=== PATIENT | male | born 1965 | race Two or more races ===

== ENCOUNTER 2024-07-11 16:52 | Inpatient (IN) | payer MEDICAID, OTHER ==
[~2024-07-11] VITALS: Ht 162.6 cm; Wt 70.2 kg
[~2024-07-11 16:52] MED LIST: HYDR12.59 PO; PANT40T PO
--- NOTE | 2024-07-11 17:10 | ED.PDOC ---
History of Present Illness HPI Comments PMHx: DM, HTN PSHx: Denies. Social hx: No alcohol, tobacco, or illicit drug use. Meds: Insulin, Lisinopril Allergies: NKDA Vitals T: 99.5F RR: 20 HR: 113 BP: 131/86 O2: 99% on RA HPI: Poor Historian. MALE DISCHARGED FROM THE HOSPITAL EIGHT DAYS AGO PRESENTS TO THE EMERGENCY DEPARTMENT FOR persistent symptoms of generalized weakness. He went to have a follow up today with a his doctor and he was found with a fever of 102. Patient denies any pain in his body. Denies any acute symptoms. Patient denies bleeding from anywhere. Pt was d/c from [facility] on 07/03/2024 with dx hydronephrosis and sepsis UTI with pyelonephritis. REVIEW OF SYSTEMS: CONSTITUTIONAL: Denies acute: diaphoresis, chills, HEAD: Denies acute: headache, photophobia Eyes: Denies acute: Double vision, vision loss, eye pain, eye discharge. EARS: Denies acute: tinnitus, hearing loss, ear discharge, ear pain, THROAT: Denies acute: sore throat, swelling, difficulty swallowing , pain with swallowing, change in voice. NECK: Denies acute: neck pain, neck swelling, stiff neck. HEART: Denies acute : chest pain, palpitations, LUNGS: Denies acute: SOB, wheezing, cough, hemoptysis ABDOMEN: Denies acute: abdominal pain, Nausea, Vomiting, diarrhea, melena , hematemesis, hematochezia SKIN: Denies acute: rash, redness, lesions, itchiness. EXTREMITIES: Denies acute: calf pain, numbness, tingling, weakness, denies pain in extremity. Denies acute: Low back pain. Neuro: Denies acute: focal neurological deficit, motor or sensory focal neurological deficit, tremors, seizure like activity, confusion, dizziness, change in mental status, loss of bowel or bladder function, cauda equina like symptoms. : Denies acute: dysuria, hematuria, flank pain, increase in urinary frequency. PSYCH: Denies acute: hallucination, suicidal ideation, homicidal ideation. PHYSICAL EXAM: General: no acute distress, awake and alert. Head: normocephalic, atraumatic. Neck: supple, trachea is midline, no swelling. Throat: Normal phonation. Eyes:, no erythema, no purulent discharge, no proptosis, no icterus. Heart: regular rate, regular rhythm, no significant murmur appreciated. Lungs: no apparent respiratory distress, Able to speak in full sentences. No wheezing, no rhonchi, no crackles. No stridors Clear to auscultation bilaterally. Abdomen: non tender to palpation, non distended, soft, no guarding, no rebound, + bowel sounds. Neuro: Awake, Alert, oriented to name, self, situation, follows commands GCS=15. Speech is normal. Skin: no petechia, no purpura, no cyanosis, non-pale, not jaundice. Lower extremities: --no - Pitting edema no deformity, no focal swelling, no calf TTP. Makes eye contact. moves all four extremities. Face: no apparent facial droop. Ambulating in the ED independently. Time Seen by MD: 17:04 Primary Care Provider: MINO Reviewed Notes: Nurses Notes, Medications, Allergies Allergies: Coded Allergies: NO KNOWN ALLERGIES (Unverified , 07/11/24) Information Source: Patient Mode of Arrival: Ambulatory Severity: Mild Timing: Days Duration: Since onset Past Medical History PAST MEDICAL HISTORY: DM, HTN Surgical History: Denies all surgeries Family History Family History: Reviewed,noncontributory to illness, Unknown Social History Smoker: Non-Smoker, Quit Greater Than 1 Year Alcohol: Denies ETOH Use Drugs: Denies Drug Use Lives In: Home Was a procedure done? Was a procedure done?: No Differential Dx Considerations may include: Includes but not limited to thyroid disease, encephalopathy, electrolyte abnormality, sepsis, infection, intracranial pathology, drug adverse effects, arrhythmia, kidney insufficiency, ACS, CVA, malignancy, anemia X-Ray, Labs, Meds, VS Vital Signs Date Time Temp Pulse Resp B/P (MAP) Pulse Ox O2 Delivery O2 Flow Rate FiO2 07/11/24 20:48 99.7 07/11/24 20:30 106 13 96 Room Air* 0 21 07/11/24 20:30 99.7 106 13 104/73 (83) 96 99.7 07/11/24 17:15 99.5 113 20 131/86 (101) 99 Lab Test 07/11/24 19:55 07/11/24 19:43 07/11/24 17:55 07/11/24 17:50 Range/Units Troponin I High Sensitivity 5 6 </=54 ng/L Urine Color Colorless Yellow Urine Clarity Ex.turbid Clear Urine pH 6.5 5.0-9.0 Urine Specific [place] 1.010 1.001-1.035 Urine Protein 1+ H Negative Urine Ketones Trace Negative Urine Blood 2+ H Negative /uL Urine Nitrite Negative Negative Urine Bilirubin Negative Negative Urine Urobilinogen Normal Negative mg/dL Urine Leukocyte Esterase 3+ Negative /uL Urine RBC 22 0 - 3 /hpf Urine WBC 3999 0 - 3 /hpf Urine WBC Clumps Present None Seen /hpf Urine Squamous Epithelial Cells None seen <5 /hpf Urine Bacteria None seen None Seen /hpf Urine Osmolality Pending Urine Creatinine Pending Urine Protein/Creatinine Ratio Pending Urine Sodium 59 40-220 mmol/L Urine Glucose 2+ H Normal mg/dL Urine Total Protein 93.3 H 1-14 mg/dL Urine Opiates Screen Neg NEGATIVE Urine Fentanyl Screen Neg NEGATIVE Urine Barbiturates Screen Neg NEGATIVE Urine Phencyclidine Screen Neg NEGATIVE Urine Amphetamines Screen Neg NEGATIVE Urine Benzodiazepines Screen Neg NEGATIVE Urine Cocaine Screen Neg NEGATIVE Urine Cannabinoids Screen Neg NEGATIVE White Blood Count 14.5 H 4.4-10.8 10^3/uL Red Blood Count 4.01 L 4.5-5.90 10^6/uL Hemoglobin 12.3 L 13.5-17.5 g/dL Hematocrit 36.4 L 41.0-53.0 % Mean Corpuscular Volume 91.0 80.0-100.0 fL Mean Corpuscular Hemoglobin 30.7 28.0-32.0 pg Mean Corpuscular Hemoglobin Concent 33.7 32.0-36.0 g/dL Red Cell Distribution Width 12.9 11.8-14.3 % Platelet Count 477 H 140-450 10^3/uL Mean Platelet Volume 7.6 6.9-10.8 fL Neutrophils (%) (Auto) 79.5 37.0-80.0 % Lymphocytes (%) (Auto) 13.3 10.0-50.0 % Monocytes (%) (Auto) 6.1 0.0-12.0 % Eosinophils (%) (Auto) 0.4 0.0-7.0 % Basophils (%) (Auto) 0.7 0.0-2.0 % Neutrophils # (Auto) 11.5 H 1.6-8.6 10 ^3/uL Lymphocytes # (Auto) 1.9 0.4-5.4 10 ^3/uL Monocytes # (Auto) 0.9 0-1.3 10 ^3/uL Eosinophils # (Auto) 0.1 0-0.8 10 ^3/uL Basophils # (Auto) 0.1 0-0.2 10 ^3/uL Nucleated Red Blood Cells 0.0 % Sodium Level 137 136-145 mmol/L Potassium Level 4.6 3.5-5.1 mmol/L Chloride Level 102 98-107 mmol/L Carbon Dioxide Level 23 20-31 mmol/L Anion Gap 12 5-15 Blood Urea Nitrogen 38 H 9-23 mg/dL Creatinine 2.81 H 0.700-1.30 mg/dL Glomerular Filtration Rate Calc 25 >90 mL/min BUN/Creatinine Ratio 13.5 10.0-20.0 Serum Glucose 277 H 74-106 mg/dL Lactic Acid Level 1.5 0.4-2.0 mmol/L Calcium Level 9.4 8.7-10.4 mg/dL Magnesium Level 1.6 1.6-2.6 mg/dL Total Bilirubin 0.6 0.2-1.0 mg/dL Aspartate Amino Transferase (AST) < 8 L 13-40 U/L Alanine Aminotransferase (ALT) 17 7-40 U/L Alkaline Phosphatase 138 H 46-116 U/L Total Protein 6.5 5.7-8.2 g/dL Albumin 3.9 3.2-4.8 g/dL Influenza Type A Antigen Negative Negative Influenza Type B Antigen Negative Negative SARS-CoV-2 Antigen (Rapid) Negative NEGATIVE Current Medications Medications (Trade) Dose Ordered Sig/Tom Route Start Time Stop Time Status Last Admin Sodium Chloride 1,000 ml @ 1,000 mls/hr Q1H ONCE IV 07/11/24 17:30 07/11/24 18:29 DC 07/11/24 18:16 Ceftriaxone Sodium 50 ml @ 100 mls/hr ONCE ONCE IV 07/11/24 19:30 07/11/24 19:59 DC 07/11/24 19:39 Acetaminophen (Tylenol Tablet) 650 mg ONCE ONCE PO 07/11/24 20:45 07/11/24 20:46 DC 07/11/24 20:48 [facility] [id number] [place] [id number] Ph: [phone] DIAGNOSTIC IMAGING Diagnostic Imaging Report : [id number] Signed PATIENT: SHANTHI ONTIVEROS ACCT: [id number] UNIT: [id number] : 1965 LOC: ER ROOM / BED: / AGE / SEX: 59 / M ADM STATUS: REG ER SERVICE 25 ORDERING PHYSICIAN: KATT DA SILVA DO PROCEDURE(s): CXRP - CHEST PORTABLE REASON: fever/weak ORDER NUMBER(s): [id number], ACCESSION NUMBER(s): [id number] AP portable chest REASON FOR EXAM: fever/weak INDICATION: fever/weak FINDINGS: Heart size is . Aorta is tortuous. There are no infiltrates or effusions. Degenerative changes in the thoracic spine. IMPRESSION: 1. No acute cardiopulmonary pathology. ATED BY: JUDY PIÑA MD DICTATED DATE/TIME: 07/11/241748 SIGNED BY: JUDY PIÑA MD SIGNED DATE/TIME: 07/11/241748 CC: Time of 1ST Reevaluation: 17:34 Reevaluation 1ST: Unchanged Time of 2ND Reevaluation: 22:39 Reevaluation 2ND: Improved Patient Education/Counseling: Diagnosis, Treatment Family Education/Counseling: No Family Present Comments Patient presented with the above HPI.--generalized weakness/fever----workup was initiated. patient was found with the above mentioned diagnosis. Patient was given: Fluids and Tylenol and empiric antibiotics Patient ED course and VS have been stabilized. Patient has been reassessed in the ED and remained in a stable condition. Pertinent incidental findings were discussed with the patient and/or family. Patient/family voices understanding and is agreeable with plan. Patient has been observed in the ED adequate length of time to insure improvement/stability. patient was admitted to the medicine team for further evaluation and treatment of their presentation. All the reports of any imaging studies that were ordered by myself were reviewed by myself. Departure 1 Departure Time of Disposition: 19:24 Impression: Primary Impression: Fever Additional Impressions: Generalized weakness Urinary tract infection Disposition: ADMITTED INPATIENT Admit to: [facility] Condition: Guarded Discharged With: Self Critical Care Note Critical Care Time?: No Heart Score Heart Score: Heart Score Response (Comments) Value History N/A 0 EKG N/A 0 Age N/A 0 Risk Factors N/A 0 Troponin N/A 0 Total 0 I personally scribed for AVINASHKATT Nascimento DO ([email or web address]) on 07/11/24 at 17:10. Electronically submitted by Ginger Trimble ([employer]). I personally scribed for AVINASHKATT Azam SAWANT (DVFARMI) on 07/11/24 at 17:20. Electronically submitted by Ginger Tirmble ([employer]). I personally scribed for AVINASHKATT Azam SAWANT ([email or web address]) on 07/11/24 at 18:05. Electronically submitted by Ginger Trimble ([employer]). I personally scribed for AVINASHQUIQUEE Azam SAWANT (DVFARMI) on 07/11/24 at 19:00. Electronically submitted by Ginger Trimble ([employer]). I personally scribed for AVINASHKATT DO (DVFARMI) on 07/11/24 at 19:04. Electronically submitted by Ginger Trimble ([employer]). I personally scribed for AVINASHQUIQUEE Azam SAWANT ([email or web address]) on 07/11/24 at 19:06. Electronically submitted by Ginger Trimble ([employer]). KATT DA SILVA DO Jul 11, 2024 17:10
--- NOTE | 2024-07-11 17:51 | DVH ---
AP portable chest REASON FOR EXAM: fever/weak INDICATION: fever/weak FINDINGS: Heart size is . Aorta is tortuous. There are no infiltrates or effusions. Degenerative ch anges in the thoracic spine. IMPRESSION: 1. No acute cardiopulmonary pathology.
[2024-07-11] MEDS: SODIUM CHLORIDE 0.9% 1,000 ML IV ONE (18:16)
[2024-07-11 18:27] LABS: Basophils # (auto) 0.1 10 ^3/uL (0-0.2); Basophils % (auto) 0.7 % (0.0-2.0); Eosinophils # (auto) 0.1 10 ^3/uL (0-0.8); Eosinophils % (auto) 0.4 % (0.0-7.0); Hematocrit 36.4 % (41.0-53.0); Hemoglobin 12.3 g/dL (13.5-17.5); Lymphocytes # (auto) 1.9 10 ^3/uL (0.4-5.4); Lymphocytes % (auto) 13.3 % (10.0-50.0); Mean Corpuscular Hemoglobin 30.7 pg (28.0-32.0); Mean Corpuscular Hgb Conc. 33.7 g/dL (32.0-36.0); Monocytes # (auto) 0.9 10 ^3/uL (0-1.3); Monocytes % (auto) 6.1 % (0.0-12.0); Neutrophils # (auto) 11.5 10 ^3/uL (1.6-8.6); Neutrophils % (auto) 79.5 % (37.0-80.0); Platelet Count (auto) 477 10^3/uL (140-450); Red Blood Cells 4.01 10^6/uL (4.5-5.90); Red Cell Distribution Width 12.9 % (11.8-14.3); White Blood Cell 14.5 10^3/uL (4.4-10.8)
[2024-07-11 18:36] LABS: COVID19 ANTIGEN SOFIA FIA NEGATIVE (NEGATIVE)
[2024-07-11 18:37] LABS: Rapid Influenza A Negative (Negative); Rapid Influenza B Negative (Negative)
[2024-07-11 18:50] LABS: Alanine Aminotransferase 17 U/L (7-40); Albumin 3.9 g/dL (3.2-4.8); Alkaline Phosphatase 138 U/L (46-116); Anion Gap 12 (5-15); Aspartate Aminotransferase < 8 U/L (13-40); BUN/Creatinine Ratio 13.5 (10.0-20.0); Blood Urea Nitrogen 38 mg/dL (9-23); Calcium 9.4 mg/dL (8.7-10.4); Carbon Dioxide 23 mmol/L (20-31); Chloride 102 mmol/L (98-107); Glucose 277 mg/dL (74-106); Magnesium 1.6 mg/dL (1.6-2.6); Potassium 4.6 mmol/L (3.5-5.1); Sodium 137 mmol/L (136-145)
[2024-07-11 18:51] LABS: Bilirubin, Total 0.6 mg/dL (0.2-1.0); Total Protein 6.5 g/dL (5.7-8.2)
[2024-07-11] MEDS: cefTRIAXone 1GM/50ML D5W 50 ML IV ONE (19:39)
[2024-07-11 20:28] LABS: Urine Bacteria None Seen /hpf (None Seen)
[2024-07-11 20:30] VITALS: PULSE 106; RESP 13; O2SAT 96
[2024-07-11 20:40] LABS: Urine Blood 2+ /uL (Negative); Urine Clarity Ex.Turbid (Clear); Urine Color Colorless (Yellow); Urine Protein, UAD 1+ (Negative); Urine Urobilinogen Normal (Negative); Urine WBC 3999 /hpf (0 - 3); Urine WBC Clumps PRESENT /hpf (None Seen); Urine pH 6.5 (5.0-9.0)
[2024-07-11 20:45] LABS: Amphetamine Screen, Urine Neg (NEGATIVE); Barbiturate Scree,Urine Neg (NEGATIVE); Benzodiazephine Screen, Urine Neg (NEGATIVE)
[2024-07-11 20:46] LABS: Cannabinoid Screen, Urine Neg (NEGATIVE); Cocaine Screen, Urine Neg (NEGATIVE); Opiate Scree,Urine Neg (NEGATIVE); Phencyclidine Screen, Urine Neg (NEGATIVE)
[2024-07-11] MEDS: ACETAMINOPHEN 325 MG TAB PO ONE (20:48)
[2024-07-11] MEDS ORDERED: DOCUSATE SOD 100 MG CAP PO PRN (21:00)
[2024-07-11] MEDS ORDERED: ACETAMINOPHEN 325 MG TAB PO PRN (21:00)
[2024-07-11] MEDS ORDERED: NITROGLYCERIN 0.4 MG SL TAB SL PRN (21:00)
[2024-07-11] MEDS ORDERED: MORPHINE SULFATE INJ 2 MG/ml SYRG IV PRN ×2 (21:00)
--- NOTE | 2024-07-11 21:49 | DVHHPRES ---
History of Present Illness Resident Creating Document: CHAPIS BIGGS RESIDENT History of Present Illness Patient is 59 years old male with past medical history of hypertension, diabetes mellitus type 2, hyperlipidemia, suspected CKD with recent hospitalization due to UTI with sepsis came with a complaint of generalized weakness and fever. As per patient patient has been feeling tired for last 1 week after getting discharged from [facility]. Patient reported that he has no energy and he also had fever at home running around 103 F. patient also complained about increased frequency of micturition for last 1 week. patient came to the outpatient clinic for follow and found to have fever 102 F. and patient was referred to ER for further evaluation and care. Denied any joint pain or swelling, dysuria, chest pain or shortness of breath, palpitation, dysarthria, change in vision. Initial lab workup revealed leukocytosis with WBC 14.7, suspected CKD with serum creatinine 2.81, BUN 38, elevated serum glucose 277, low magnesium 1.6, elevated alkaline phosphatase 138. Urinalysis revealed leukocyte esterase 3+, RBC 22, WBC 3999. Patient's Was recently hospitalized for acute UTI with sepsis, patient found to have Klebsiella pneumonia. patient was treated with piperacillin/tazobactam. CXR revealed no acute cardiopulmonary disease. UDS negative. CT abdomen and pelvis revealed-Mild bilateral hydronephrosis right greater than left. Bilateral ureterectasis to the ureterovesical junction bilaterally with no calculi noted. Diffuse bladder wall thickening ( 8-9 mm) may be secondary to infection or neoplasm. Prostate measures 4.2 x 4 cm Past Medical History Hypertension, diabetes mellitus type 2, hyperlipidemia, suspected CKD Past Surgical History None Past Social History Patient lives with his mom at home, denies smoking/alcoholism/drug abuse Review of Systems Review of Systems Allergy- NKDA Patient was seen today at the bedside. Patient reports feeling tired Cardiovascular- deny acute chest pain or shortness of breath or cough or palpitation Respiratory- denies cough or short of breath or wheezing Gastrointestinal- denies any rectal bleeding, nausea or vomiting Musculoskeletal-denies acute joint swelling or tenderness or redness Neurological- denies acute dysarthria, dysphagia, change in vision Psychiatry- denies depression or SI or HI Skin- denies acute rash or purpura Allergies: Coded Allergies: NO KNOWN ALLERGIES (Unverified , 07/11/24) Medications Current Medications Medications Dose Ordered Sig/Tom Route Start Time Stop Time Status Last Admin Dose Admin Sodium Chloride 10 ml Q8HR IV 07/11/24 22:00 Ondansetron HCl 4 mg Q4HP PRN IV 07/11/24 21:00 Docusate Sodium 100 mg BIDPRN PRN PO 07/11/24 21:00 Acetaminophen 650 mg Q6HP PRN PO 07/11/24 21:00 Morphine Sulfate 2 mg Q4HPRN PRN IV 07/11/24 21:00 Nitroglycerin 0.4 mg Q5MINP PRN SL 07/11/24 21:00 Morphine Sulfate 2 mg Q30M PRN IV 07/11/24 21:00 Meropenem 50 ml @ 17 mls/hr Q12HR IV 07/11/24 22:00 UNV Sodium Chloride 1,000 ml @ 75 mls/hr [id number] IV 07/11/24 21:45 UNV Exam Vital Signs Vital Signs Date Time Temp Pulse Resp B/P (MAP) Pulse Ox O2 Delivery O2 Flow Rate FiO2 07/11/24 20:48 99.7 07/11/24 20:30 106 13 96 Room Air* 0 21 07/11/24 20:30 104/73 (83) Exam General examination- awake, alert, oriented, conversant HEENT- PEERLA, no acute nasal discharge Cardiovascular- S1-S2 audible, rate and rhythm regular, no murmur Respiratory- CTAB, no wheeze or rhonchi Gastrointestinal-nontender, bowel sound+. Nondistended -renal system-right renal angle tenderness Musculoskeletal-no acute joint swelling or tenderness or redness# Lower extremity-leg edema Neurological- cranial nerves intact, no acute dysarthria or dysphagia Psychiatry- denies depression or SI or HI Skin- no acute rash or purpura Labs/Xrays Labs Test 07/11/24 19:55 07/11/24 19:43 07/11/24 17:55 07/11/24 17:50 Range/Units Troponin I High Sensitivity 5 </=54 ng/L Urine Color Colorless Yellow Urine Clarity Ex.turbid Clear Urine pH 6.5 5.0-9.0 Urine Specific [place] 1.010 1.001-1.035 Urine Protein 1+ H Negative Urine Ketones Trace Negative Urine Blood 2+ H Negative /uL Urine Nitrite Negative Negative Urine Bilirubin Negative Negative Urine Urobilinogen Normal Negative mg/dL Urine Leukocyte Esterase 3+ Negative /uL Urine RBC 22 0 - 3 /hpf Urine WBC 3999 0 - 3 /hpf Urine WBC Clumps Present None Seen /hpf Urine Squamous Epithelial Cells None seen <5 /hpf Urine Bacteria None seen None Seen /hpf Urine Glucose 2+ H Normal mg/dL Urine Opiates Screen Neg NEGATIVE Urine Fentanyl Screen Neg NEGATIVE Urine Barbiturates Screen Neg NEGATIVE Urine Phencyclidine Screen Neg NEGATIVE Urine Amphetamines Screen Neg NEGATIVE Urine Benzodiazepines Screen Neg NEGATIVE Urine Cocaine Screen Neg NEGATIVE Urine Cannabinoids Screen Neg NEGATIVE White Blood Count 14.5 H 4.4-10.8 10^3/uL Red Blood Count 4.01 L 4.5-5.90 10^6/uL Hemoglobin 12.3 L 13.5-17.5 g/dL Hematocrit 36.4 L 41.0-53.0 % Mean Corpuscular Volume 91.0 80.0-100.0 fL Mean Corpuscular Hemoglobin 30.7 28.0-32.0 pg Mean Corpuscular Hemoglobin Concent 33.7 32.0-36.0 g/dL Red Cell Distribution Width 12.9 11.8-14.3 % Platelet Count 477 H 140-450 10^3/uL Mean Platelet Volume 7.6 6.9-10.8 fL Neutrophils (%) (Auto) 79.5 37.0-80.0 % Lymphocytes (%) (Auto) 13.3 10.0-50.0 % Monocytes (%) (Auto) 6.1 0.0-12.0 % Eosinophils (%) (Auto) 0.4 0.0-7.0 % Basophils (%) (Auto) 0.7 0.0-2.0 % Neutrophils # (Auto) 11.5 H 1.6-8.6 10 ^3/uL Lymphocytes # (Auto) 1.9 0.4-5.4 10 ^3/uL Monocytes # (Auto) 0.9 0-1.3 10 ^3/uL Eosinophils # (Auto) 0.1 0-0.8 10 ^3/uL Basophils # (Auto) 0.1 0-0.2 10 ^3/uL Nucleated Red Blood Cells 0.0 % Sodium Level 137 136-145 mmol/L Potassium Level 4.6 3.5-5.1 mmol/L Chloride Level 102 98-107 mmol/L Carbon Dioxide Level 23 20-31 mmol/L Anion Gap 12 5-15 Blood Urea Nitrogen 38 H 9-23 mg/dL Creatinine 2.81 H 0.700-1.30 mg/dL Glomerular Filtration Rate Calc 25 >90 mL/min BUN/Creatinine Ratio 13.5 10.0-20.0 Serum Glucose 277 H 74-106 mg/dL Lactic Acid Level 1.5 0.4-2.0 mmol/L Calcium Level 9.4 8.7-10.4 mg/dL Magnesium Level 1.6 1.6-2.6 mg/dL Total Bilirubin 0.6 0.2-1.0 mg/dL Aspartate Amino Transferase (AST) < 8 L 13-40 U/L Alanine Aminotransferase (ALT) 17 7-40 U/L Alkaline Phosphatase 138 H 46-116 U/L Total Protein 6.5 5.7-8.2 g/dL Albumin 3.9 3.2-4.8 g/dL Influenza Type A Antigen Negative Negative Influenza Type B Antigen Negative Negative SARS-CoV-2 Antigen (Rapid) Negative NEGATIVE Assessment/Plan Assessment/Plan #Suspected recurrent pyelonephritis -patient's fever and generalized weakness -increased frequency of micturition -urinalysis revealed leukocyte esterase 3+, RBC 22, WBC 3999 -was seen and treated for UTI with sepsis -continue meropenem 1 g IV b.i.d. -pending uterine and blood CS - CT scan of the abdomen and pelvis without contrast-Mild bilateral hydronephrosis right greater than left. Bilateral ureterectasis to the ureterovesical junction bilaterally with no calculi noted. Diffuse bladder wall thickening ( 8-9 mm) may be secondary to infection or neoplasm. Prostate measures 4.2 x 4 cm -ultrasound of the abdomen revealed- Bilateral vikn-rs-zbiipglc hydronephrosis and hydroureter with diffuse urinary bladder wall thickening which may represent diffuse cystitis versus neoplasm -Ultrasound of the abdomen revealed- Bilateral gaii-xr-ydmuuiax hydronephrosis and hydroureter with diffuse urinary bladder wall thickening which may represent diffuse cystitis versus neoplasm #Sepsis likely due to pyelonephritis --patient's fever and generalized weakness -increased frequency of micturition -urinalysis revealed leukocyte esterase 3+, RBC 22, WBC 3999 -was seen and treated for UTI with sepsis -continue meropenem 1 g IV b.i.d. -pending urine and blood CS -CT scan of the abdomen and pelvis without contrast-Mild bilateral hydronephro sis right greater than left. Bilateral ureterectasis to the ureterovesical junction bilaterally with no calculi noted. Diffuse bladder wall thickening ( 8- 9 mm) may be secondary to infection or neoplasm. Prostate measures 4.2 x 4 cm -Ultrasound of the abdomen revealed- Bilateral yryb-zt-vzbkghtc hydronephrosis and hydroureter with diffuse urinary bladder wall thickening which may represent diffuse cystitis versus neoplasm #Mild bilateral hydronephrosis right greater than left. Bilateral ureterectasis to the ureterovesical junction bilaterally with no calculi noted. -ordered Urology consult for further evaluation and care #Diffuse bladder wall thickening ( 8-9 mm) may be secondary to infection or neoplasm --ordered Urology consult for further evaluation and care # rule out prostatitis -CT scan of the abdomen and pelvis without contrast-Mild bilateral hydronephrosis right greater than left. Bilateral ureterectasis to the ureterovesical junction bilaterally with no calculi noted. Diffuse bladder wall thickening ( 8-9 mm) may be secondary to infection or neoplasm. Prostate measures 4.2 x 4 cm -Ultrasound of the abdomen revealed- Bilateral jfrk-qw-viebeajv hydronephrosis and hydroureter with diffuse urinary bladder wall thickening which may represent diffuse cystitis versus neoplasm -pending Urology consult #Mild bilateral hydronephrosis right greater than left. Bilateral ureterectasis to the ureterovesical junction bilaterally with no calculi noted. # generalized weakness and fever likely due to recurrent pyelonephritis -continue current treatment #Hypertension -hydralazine 10 mg IV p.r.n. -MONITOR BLOOD PRESSURE # Diabetes mellitus type 2 -on 06/30/24 HGB A1c 10.7 -continue insulin sliding scale as prescribed -insulin Lantus 15 units q.h.s. #Suspected CKD stage 3 -avoid dehydration and nephrotoxic drugs #Hypomagnesemia -magnesium 1.6 -supplemented #Leukocytosis likely due to pyelonephritis -continue current management as prescribed # Goals of care/advance care planning; FULL CODE; discussed with the patient >15 minutes PUD prophylaxis: not required DVT prophylaxis: Patient ambulating PCP-Dr. Serrano Plan discussed with Dr. Gutierrez, nursing staff, patient Total time spent on patient evaluation, chart review, assessment and plan, discussion discussion >30 minutes Plan discussed with: Patient Plan discussed with: Patient (RN), Other My Orders Orders - CHAPIS BIGGS Procedure Category Date Status Time Admit ADMIT 07/11/24 Transmitted 20:48 Code Status CODE 07/11/24 Transmitted 20:48 Sodium Chloride Lock PHA 07/11/24 In Process (Saline Lock Ns) 22:00 Ondansetron Hcl PHA 07/11/24 In Process (Zofran) 21:00 Docusate Sodium PHA 07/11/24 In Process Capsule (Colace 21:00 Complete Blood Count LAB 07/12/24 Verified 04:00 Comprehensive LAB 07/12/24 Verified Metabolic Panel 04:00 Acetaminophen Tablet PHA 07/11/24 In Process (Tylenol Tablet) 21:00 Morphine Sulfate PHA 07/11/24 In Process Injection 21:00 Nitroglycerin PHA 07/11/24 In Process Sublingual (Ntrostat 21:00 Morphine Sulfate PHA 07/11/24 In Process Injection 21:00 Oxygen By Nasal RT 07/11/24 Transmitted Cannula 20:48 Stat Ekg For Chest NOEMÍ 07/11/24 In Process Pain 20:48 Notify Of Changes NOEMÍ 07/11/24 In Process From Base 20:48 Athletics Director For NOEMÍ 07/11/24 In Process 24 Hours 20:48 Emergency Dysrhythmia NOEMÍ 07/11/24 In Process Protocol 20:48 Rhythm Strips Once NOEMÍ 07/11/24 In Process Every Shift 20:48 Urine Bacterial JATIN 07/11/24 In Process Culture 21:08 Meropenem 1gm Ivpb PHA 07/11/24 Logged (Merrem 1gm/ Ns) 22:00 Sodium Chloride 0.9% PHA 07/11/24 Logged 21:45 Ct Ab Pelvis W Wo CT 07/11/24 Verified Con-Iv Only 21:35 Osmolality Urine LAB 07/11/24 Verified 21:35 Urine Sodium LAB 07/11/24 Verified 21:35 Urine LAB 07/11/24 Verified Protein/Creatinine Urine Creatinine LAB 07/11/24 Verified 21:35 Intake And Output NOEMÍ 07/11/24 Verified 21:35 Date of Service: Jul 11, 2024 Billing Provider: EVERETTE GUTIERREZ MD Common Visit Codes: [id number] INP/OBS CARE (HIGH) CHAPIS BIGGS RESIDENT Jul 11, 2024 21:49 EVERETTE GUTIERREZ MD Jul 12, 2024 08:53
[2024-07-11] MEDS: ACCU-CHEK COMFORT CURVE STRIP VI SCH (22:00)
[2024-07-11] MEDS ORDERED: hydrALAZINE HCL 20 MG/ML VL IV PRN (22:00)
[2024-07-11] MEDS ORDERED: DEXTROSE (50%) 50ML SYRG IV PRN (22:00)
[2024-07-11] MEDS ORDERED: MEROPENEM 1GM IVPB 50 ML IV SCH (22:00)
[2024-07-11 22:35] LABS: Protein, Urine 93.3 mg/dL (1-14)
--- NOTE | 2024-07-11 22:35 | DVH ---
Exam: CT CT AB PEL WO CON-NO ORAL OR IV History: SUSPECTED PYELONEPHRITIS Comparison Study: None available at time of dictation. TECHNIQUE: Multidetector CT of the abdomen was performed from lung bases to pubic symphysis. Imaging was performed without IV contrast. Axial, coronal and sagittal multiplanar reformats were obtained fr om the axial data set by the technologist. Radiation Dose Information: CT Dose: CTDI volume is 7.94 mGy. Dose-length product is 437.99 mGy*cm FINDINGS: Evaluation of solid organs is limited due to lack of intravenous contrast use. Findings: Lung Bases: No acute or significant lung base finding. Normal heart size. No pleural or pericardial effusion. Liver: The liver is normal in size. No focal lesions. 16 17 mm cyst in the right lobe of the liver. Gallbladder and Biliary Tree: Unremarkable Spleen: Unremarkable Pancreas: The pancreas is grossly normal in appearance. Adrenal Glands: Unremarkable Kidneys: Mild bilateral hydronephrosis with ureteral dilatation to the bladder. Bladder: Bladder wall thickening may be secondary to infection or neoplasm. Bowel: The stomach is grossly normal in appearance. Small bowel and colon are normal in caliber and d istribution. The appendix is not visualized; however, no secondary findings of acute appendicitis id entified. Ascites: Absent Lymphadenopathy: No mesenteric, retroperitoneal or periportal lymphadenopathy. Abdominal Wall and Mesentery: Unremarkable. Vasculature: The visualized abdominal aorta is normal in size and caliber. Evaluation of abdominal a nd pelvic vessels is limited due to lack of intravenous contrast. Pelvic Organs: Prostate measures 4.2 by 4 cm Musculoskeletal: No aggressive focal bony lesions, acute fractures or dislocation. Soft tissues: Unremarkable IMPRESSION: 1. Mild bilateral hydronephrosis right greater than left. 2. Bilateral ureterectasis to the ureterovesical junction bilaterally with no calculi noted. 3. Diffuse bladder wall thickening ( 8-9 mm) may be secondary to infection or neoplasm. 4. Prostate measures 4.2 x 4 cm Radiation optimization: All CT scans at this facility use at least one of these dose optimization magalys hniques: automated exposure control mA and/or kV adjustment per patient size (includes targeted exam s where dose is matched to clinical indication) or iterative reconstruction.
[2024-07-11 22:38] LABS: Creatinine, Urine 78.31 mg/dL (30.0-125.0); Urine Protein/Creatinine Ratio 1.19
[2024-07-11 22:43] LABS: Creatinine, Urine 78.07 mg/dL (30.0-125.0)
[2024-07-12] VITALS (7 sets, daily range): BP systolic 110–129; BP diastolic 72–95; PULSE 86–101; RESP 15–23; TEMP 98–100.1; O2SAT 95–99
[2024-07-12] MEDS: InsuLIN REG 1unit/0.01ml Soln (100units/ml) SC SCH (00:29)
[2024-07-12] MEDS: INSULIN LANTUS (GLARGINE) 1 /0.01ml (100units/ml) SC SCH (00:30)
[2024-07-12] MEDS: SODIUM CHLORIDE 0.9% 1,000 ML IV SCH ×2 (00:44→08:45)
[2024-07-12] MEDS: MAGNESIUM SULFATE 1GM/100ML 100 ML IV ONE (00:44)
[2024-07-12] MEDS: SODIUM CHLOR 0.9% PF (SALINE LOCK) 10ML VIAL/SYR IV SCH (00:45)
[2024-07-12] MEDS: MEROPENEM 1GM IVPB 50 ML IV SCH (02:15)
--- NOTE | 2024-07-12 04:06 | DVH ---
US KIDNEY HISTORY: FEVER, WEAKNESS COMPARISON: CT 07/11/2024 TECHNIQUE: Real-time ultrasound grayscale and color Doppler images were obtained of the kidneys and b ladder. FINDINGS: The right kidney measures 9.8 cm in length. Left kidney measures 8.9 cm in length. There is bilatera l hydronephrosis. The kidneys appear lobulated in contour. Renal cortex appears preserved. No sonogr aphically evident calculus or mass. The urinary bladder demonstrates diffuse wall thickening with increased vascularity. Prevoid volume of 778 ML. Postvoid volume of 488 ML IMPRESSION: 1. Bilateral tgqj-ow-nklfjbeh hydronephrosis and hydroureter with diffuse urinary bladder wall thicke uma which may represent diffuse cystitis versus neoplasm. Correlation with urinalysis is recommended . Findings are similar to prior CT. HS:Y
[2024-07-12 04:58] LABS: Basophils # (auto) 0.2 10 ^3/uL (0-0.2); Basophils % (auto) 1.3 % (0.0-2.0); Eosinophils # (auto) 0 10 ^3/uL (0-0.8); Eosinophils % (auto) 0.3 % (0.0-7.0); Hematocrit 34.2 % (41.0-53.0); Hemoglobin 11.7 g/dL (13.5-17.5); Lymphocytes % (auto) 7.1 % (10.0-50.0); Mean Corpuscular Hemoglobin 30.9 pg (28.0-32.0); Mean Corpuscular Hgb Conc. 34.1 g/dL (32.0-36.0); Mean Corpuscular Volume 90.5 fL (80.0-100.0); Monocytes # (auto) 0.8 10 ^3/uL (0-1.3); Monocytes % (auto) 5.8 % (0.0-12.0); Neutrophils # (auto) 12.2 10 ^3/uL (1.6-8.6); Neutrophils % (auto) 85.5 % (37.0-80.0); Nucleated Red Blood Cells % 0.1 %; Platelet Count (auto) 387 10^3/uL (140-450); Red Blood Cells 3.78 10^6/uL (4.5-5.90); Red Cell Distribution Width 12.9 % (11.8-14.3); White Blood Cell 14.2 10^3/uL (4.4-10.8)
[2024-07-12 05:12] LABS: Alanine Aminotransferase 14 U/L (7-40); Albumin 3.6 g/dL (3.2-4.8); Alkaline Phosphatase 120 U/L (46-116); Anion Gap 11 (5-15); Aspartate Aminotransferase < 8 U/L (13-40); BUN/Creatinine Ratio 14.3 (10.0-20.0); Bilirubin, Total 0.4 mg/dL (0.2-1.0); Blood Urea Nitrogen 39 mg/dL (9-23); Calcium 9.3 mg/dL (8.7-10.4); Carbon Dioxide 21 mmol/L (20-31); Chloride 108 mmol/L (98-107); Phosphorus 2.4 mg/dL (2.4-5.1); Potassium 3.7 mmol/L (3.5-5.1); Sodium 140 mmol/L (136-145); Total Protein 6.4 g/dL (5.7-8.2)
[2024-07-12 05:15] LABS: Glucose 117 mg/dL (74-106)
[2024-07-12] MEDS: ONDANSETRON HCL 4 MG/2 ML VIAL IV PRN (06:36)
--- NOTE | 2024-07-12 08:18 | DVHINCON2 ---
Date of service: Jul 12, 2024 Referring Physician hospitalist Reason for Consultation hydronephrosis History of Present Illness History Source: Patient, RN Notes, MD Notes, Old Records Exam Limitations: No limitations HPI 59 yo male PMH HTN, DM, CKD, UTI, sepsis, dehydration and BPH admitted for generalized weakness. He reports he had been taking flomax prescribed by PCP but has been out for 2 months and noticed increase in LUTs. He was given flomax today and He is asymptomatic currently. CT showed bilateral hydro with thickened bladder wall . Cr is 1.6 Baseline around 2. He was admitted here last week for sepsis. Urine and blood cultures were noted to be positive for Klebsiella Pneumonia Home Meds Reported Medications Insulin Glargine (Lantus Solostar) 100 Unit/Ml Inj, 100 UNIT SC DAILY, INJ 07/12/24 Lisinopril (Lisinopril) 10 Mg Tab, 10 MG PO DAILY, TAB 07/12/24 Glipizide (Glipizide) 5 Mg Tab, 1 TAB PO DAILY, #90 TAB 3 Refills 07/12/24 Atorvastatin Calcium (ATORVASTATIN CALCIUM) 40 Mg Tab, 1 TAB PO QPM, #30 TAB 5 Refills 07/12/24 Tamsulosin Hcl (Tamsulosin Hcl) 0.4 Mg Cap, 0.4 MG PO DAILY, CAP 07/12/24 Past Medical History Renal/: UTI Endocrine: NIDDM Smoker: No Hx (Negative) Alocohol: None Drugs: None Domestic Violence: Neg Review of Systems Constitutional: Weakness Genitourinary: Frequency H&P Exam Vital Signs Vital Signs Date Time Temp Pulse Resp B/P (MAP) Pulse Ox O2 Delivery O2 Flow Rate FiO2 07/12/24 04:38 108 14 131/69 (89) 98 07/12/24 00:01 98.2 98.2 07/12/24 00:01 Room Air* 0 21 General Appeara: Well developed, Well nourished, Normal Appearance Pulmonary/Respiratory: Normal inspection, Normal breath sounds, Chest non- tender, Lungs clear Cardiovascular/Chest: Normal inspection, Regular rate, Normal Rhythm Abdominal Exam: Normal bowel sounds, Soft, No tenderness, No hepatospenomegaly, No masses Rectal Exam: Deferred Neuro/Mental St: Alert, Oriented Appearance: Appropriate appearance, Appropriate insight Eye contact/ Speech: Cooperative, Good eye contact, Normal speech Skin Exam: Normal inspection, Normal color, Warm/dry Labs/Xrays [facility] [id number] [place] [id number] Ph: [phone] DIAGNOSTIC IMAGING Diagnostic Imaging Report : [id number] Signed PATIENT: SHANTHI ONTIVEROS ACCT: [id number] UNIT: [id number] : 1965 LOC: OVERFLOW ROOM / BED: 1022-ER / A AGE / SEX: 59 / M ADM STATUS: ADM IN SERVICE 44 ORDERING PHYSICIAN: CHAPIS BIGGS RESIDENT PROCEDURE(s): ABPL - CT AB PEL WO CON-NO ORAL OR IV REASON: SUSPECTED PYELONEPHRITIS ORDER NUMBER(s): [id number], ACCESSION NUMBER(s): [id number] Exam: CT CT AB PEL WO CON-NO ORAL OR IV History: SUSPECTED PYELONEPHRITIS Comparison Study: None available at time of dictation. TECHNIQUE: Multidetector CT of the abdomen was performed from lung bases to pubic symphysis. Imaging was performed without IV contrast. Axial, coronal and sagittal multiplanar reformats were obtained from the axial data set by the technologist. Radiation Dose Information: CT Dose: CTDI volume is 7.94 mGy. Dose-length product is 437.99 mGy*cm FINDINGS: Evaluation of solid organs is limited due to lack of intravenous contrast use. Findings: Lung Bases: No acute or significant lung base finding. Normal heart size. No pleural or pericardial effusion. Liver: The liver is normal in size. No focal lesions. 16 17 mm cyst in the right lobe of the liver. Gallbladder and Biliary Tree: Unremarkable Spleen: Unremarkable Pancreas: The pancreas is grossly normal in appearance. Adrenal Glands: Unremarkable Kidneys: Mild bilateral hydronephrosis with ureteral dilatation to the bladder. Bladder: Bladder wall thickening may be secondary to infection or neoplasm. Bowel: The stomach is grossly normal in appearance. Small bowel and colon are n ormal in caliber and distribution. The appendix is not visualized; however, no secondary findings of acute appendicitis identified. Ascites: Absent Lymphadenopathy: No mesenteric, retroperitoneal or periportal lymphadenopathy. Abdominal Wall and Mesentery: Unremarkable. Vasculature: The visualized abdominal aorta is normal in size and caliber. Evaluation of abdominal and pelvic vessels is limited due to lack of intravenous contrast. Pelvic Organs: Prostate measures 4.2 by 4 cm Musculoskeletal: No aggressive focal bony lesions, acute fractures or dislocation. Soft tissues: Unremarkable IMPRESSION: 1. Mild bilateral hydronephrosis right greater than left. 2. Bilateral ureterectasis to the ureterovesical junction bilaterally with no calculi noted. 3. Diffuse bladder wall thickening ( 8-9 mm) may be secondary to infection or neoplasm. 4. Prostate measures 4.2 x 4 cm Radiation optimization: All CT scans at this facility use at least one of these dose optimization techniques: automated exposure control mA and/or kV adjustment per patient size (includes targeted exams where dose is matched to clinical indication) or iterative reconstruction. ATED BY: JUDY RIVAS Jr., DO DICTATED DATE/TIME: 07/11/242232 SIGNED BY: JUDY RIVAS Jr., DO SIGNED DATE/TIME: 07/11/242232 CC: [place] [id number] Ph: [phone] DIAGNOSTIC IMAGING Diagnostic Imaging Report : [id number] Signed PATIENT: SHANTHI ONTIVEROS ACCT: [id number] UNIT: [id number] : 1965 LOC: OVERFLOW ROOM / BED: [facility]-ER / A AGE / SEX: 59 / M ADM STATUS: ADM IN SERVICE 44 ORDERING PHYSICIAN: CHAPIS BIGGS RESIDENT PROCEDURE(s): ABPL - CT AB PEL WO CON-NO ORAL OR IV REASON: SUSPECTED PYELONEPHRITIS ORDER NUMBER(s): [id number], ACCESSION NUMBER(s): [id number] Exam: CT CT AB PEL WO CON-NO ORAL OR IV History: SUSPECTED PYELONEPHRITIS Comparison Study: None available at time of dictation. TECHNIQUE: Multidetector CT of the abdomen was performed from lung bases to pubic symphysis. Imaging was performed without IV contrast. Axial, coronal and sagittal multiplanar reformats were obtained from the axial data set by the technologist. Radiation Dose Information: CT Dose: CTDI volume is 7.94 mGy. Dose-length product is 437.99 mGy*cm FINDINGS: Evaluation of solid organs is limited due to lack of intravenous contrast use. Findings: Lung Bases: No acute or significant lung base finding. Normal heart size. No pleural or pericardial effusion. Liver: The liver is normal in size. No focal lesions. 16 17 mm cyst in the right lobe of the liver. Gallbladder and Biliary Tree: Unremarkable Spleen: Unremarkable Pancreas: The pancreas is grossly normal in appearance. Adrenal Glands: Unremarkable Kidneys: Mild bilateral hydronephrosis with ureteral dilatation to the bladder. Bladder: Bladder wall thickening may be secondary to infection or neoplasm. Bowel: The stomach is grossly normal in appearance. Small bowel and colon are normal in caliber and distribution. The appendix is not visualized; however, no secondary findings of acute appendicitis identified. Ascites: Absent Lymphadenopathy: No mesenteric, retroperitoneal or periportal lymphadenopathy. Abdominal Wall and Mesentery: Unremarkable. Vasculature: The visualized abdominal aorta is normal in size and caliber. Evaluation of abdominal and pelvic vessels is limited due to lack of intravenous contrast. Pelvic Organs: Prostate measures 4.2 by 4 cm Musculoskeletal: No aggressive focal bony lesions, acute fractures or dislocation. Soft tissues: Unremarkable IMPRESSION: 1. Mild bilateral hydronephrosis right greater than left. 2. Bilateral ureterectasis to the ureterovesical junction bilaterally with no calculi noted. 3. Diffuse bladder wall thickening ( 8-9 mm) may be secondary to infection or neoplasm. 4. Prostate measures 4.2 x 4 cm Radiation optimization: All CT scans at this facility use at least one of these dose optimization techniques: automated exposure control mA and/or kV ad justment per patient size (includes targeted exams where dose is matched to clinical indication) or iterative reconstruction. ATED BY: JUDY RIVAS Jr., DO DICTATED DATE/TIME: 07/11/242232 SIGNED BY: JUDY RIVAS Jr., SIGNED DATE/TIME: 07/11/242232 CC: [place] [id number] Ph: [phone] DIAGNOSTIC IMAGING Diagnostic Imaging Report : [id number] Signed PATIENT: SHANTHI ONTIVEROS ACCT: [id number] UNIT: [id number] : 1965 LOC: OVERFLOW ROOM / BED: 1022-ER / A AGE / SEX: 59 / M ADM STATUS: ADM IN SERVICE 0600 ORDERING PHYSICIAN: CHAPIS BIGGS RESIDENT PROCEDURE(s): KIDUS - KIDNEY REASON: FEVER, WEAKNESS ORDER NUMBER(s): [id number], ACCESSION NUMBER(s): [id number] KIDNEY HISTORY: FEVER, WEAKNESS COMPARISON: CT 07/11/2024 TECHNIQUE: Real-time ultrasound grayscale and color Doppler images were obtained of the kidneys and bladder. FINDINGS: The right kidney measures 9.8 cm in length. Left kidney measures 8.9 cm in length. There is bilateral hydronephrosis. The kidneys appear lobulated in contour. Renal cortex appears preserved. No sonographically evident calculus or mass. The urinary bladder demonstrates diffuse wall thickening with increased vascul arity. Prevoid volume of 778 ML. Postvoid volume of 488 ML IMPRESSION: 1. Bilateral xmai-ch-htbykkyi hydronephrosis and hydroureter with diffuse urinary bladder wall thickening which may represent diffuse cystitis versus neoplasm. Correlation with urinalysis is recommended. Findings are similar to prior CT. HS:Y ATED BY: DEVAUGHN TIAN MD DICTATED DATE/TIME: 07/12/24404 SIGNED BY: DEVAUGHN TIAN MD SIGNED DATE/TIME: 07/12/24404 CC: Labs Test 07/12/24 06:42 07/12/24 04:30 07/11/24 22:50 07/11/24 19:43 Range/Units POC Glucose 99 70-106 mg/dl White Blood Count 14.2 H 4.4-10.8 10^3/uL Red Blood Count 3.78 L 4.5-5.90 10^6/uL Hemoglobin 11.7 L 13.5-17.5 g/dL Hematocrit 34.2 L 41.0-53.0 % Mean Corpuscular Volume 90.5 80.0-100.0 fL Mean Corpuscular Hemoglobin 30.9 28.0-32.0 pg Mean Corpuscular Hemoglobin Concent 34.1 32.0-36.0 g/dL Red Cell Distribution Width 12.9 11.8-14.3 % Platelet Count 387 140-450 10^3/uL Mean Platelet Volume 7.5 6.9-10.8 fL Neutrophils (%) (Auto) 85.5 H 37.0-80.0 % Lymphocytes (%) (Auto) 7.1 L 10.0-50.0 % Monocytes (%) (Auto) 5.8 0.0-12.0 % Eosinophils (%) (Auto) 0.3 0.0-7.0 % Basophils (%) (Auto) 1.3 0.0-2.0 % Neutrophils # (Auto) 12.2 H 1.6-8.6 10 ^3/uL Lymphocytes # (Auto) 1.0 0.4-5.4 10 ^3/uL Monocytes # (Auto) 0.8 0-1.3 10 ^3/uL Eosinophils # (Auto) 0 0-0.8 10 ^3/uL Basophils # (Auto) 0.2 0-0.2 10 ^3/uL Nucleated Red Blood Cells 0.1 % Sodium Level 140 136-145 mmol/L Potassium Level 3.7 3.5-5.1 mmol/L Chloride Level 108 H 98-107 mmol/L Carbon Dioxide Level 21 20-31 mmol/L Anion Gap 11 5-15 Blood Urea Nitrogen 39 H 9-23 mg/dL Creatinine 2.73 H 0.700-1.30 mg/dL Glomerular Filtration Rate Calc 26 >90 mL/min BUN/Creatinine Ratio 14.3 10.0-20.0 Serum Glucose 117 #H 74-106 mg/dL Calcium Level 9.3 8.7-10.4 mg/dL Phosphorus Level 2.4 2.4-5.1 mg/dL Magnesium Level 2.0 1.6-2.6 mg/dL Total Bilirubin 0.4 0.2-1.0 mg/dL Aspartate Amino Transferase (AST) < 8 L 13-40 U/L Alanine Aminotransferase (ALT) 14 7-40 U/L Alkaline Phosphatase 120 H 46-116 U/L Total Protein 6.4 5.7-8.2 g/dL Albumin 3.6 3.2-4.8 g/dL Troponin I High Sensitivity 6 </=54 ng/L Urine Color Colorless Yellow Urine Clarity Ex.turbid Clear Urine pH 6.5 5.0-9.0 Urine Specific [place] 1.010 1.001-1.035 Urine Protein 1+ H Negative Urine Ketones Trace Negative Urine Blood 2+ H Negative /uL Urine Nitrite Negative Negative Urine Bilirubin Negative Negative Urine Urobilinogen Normal Negative mg/dL Urine Leukocyte Esterase 3+ Negative /uL Urine RBC 22 0 - 3 /hpf Urine WBC 3999 0 - 3 /hpf Urine WBC Clumps Present None Seen /hpf Urine Squamous Epithelial Cells None seen <5 /hpf Urine Bacteria None seen None Seen /hpf Urine Osmolality 417 mOsm/kg Urine Creatinine 78.31 30.0-125.0 mg/dL Urine Protein/Creatinine Ratio 1.19 Urine Sodium 59 40-220 mmol/L Urine Glucose 2+ H Normal mg/dL Urine Total Protein 93.3 H 1-14 mg/dL Urine Opiates Screen Neg NEGATIVE Urine Fentanyl Screen Neg NEGATIVE Urine Barbiturates Screen Neg NEGATIVE Urine Phencyclidine Screen Neg NEGATIVE Urine Amphetamines Screen Neg NEGATIVE Urine Benzodiazepines Screen Neg NEGATIVE Urine Cocaine Screen Neg NEGATIVE Urine Cannabinoids Screen Neg NEGATIVE Test 07/11/24 17:55 07/11/24 17:50 Range/Units Lactic Acid Level 1.5 0.4-2.0 mmol/L Influenza Type A Antigen Negative Negative Influenza Type B Antigen Negative Negative SARS-CoV-2 Antigen (Rapid) Negative NEGATIVE Assessment/Plan Problem List: (1) Acute renal insufficiency (2) Urinary tract infection (3) Fever (4) Generalized weakness (5) Readmission after hospitalization within last 30 days (6) History of Klebsiella pneumonia (7) BPH loc w urin obs/LUTS (8) Bladder wall thickening (9) Chronic kidney disease Plan urine culture - empiric abx abernathy if unable to void flomax outpt cystoscopy TBA Plan discussed with: Patient, Other ANAI QUIJANO NP Jul 12, 2024 08:18
[2024-07-12] MEDS: SODIUM CHLORIDE 0.9% 1,000 ML IV ONE (08:45)
[2024-07-12] MEDS: TAMSULOSIN HYDROCHLORIDE 0.4 MG CAP PO ONE (08:55)
[2024-07-12] MEDS ORDERED: LISI10TA34 PO (10:33)
[2024-07-12] MEDS ORDERED: TAMS0.4C39 PO (10:33)
[2024-07-12] MEDS ORDERED: GLIP5TAB21 PO (10:33)
[2024-07-12] MEDS ORDERED: INSUINJ37 SC (10:33)
[2024-07-12] MEDS ORDERED: ATOR40TA52 PO (10:33)
[2024-07-12] MEDS: TAMSULOSIN HYDROCHLORIDE 0.4 MG CAP PO SCH (17:00)
--- NOTE | 2024-07-12 18:14 | DVHPNRES ---
Progress Note Date Seen: Jul 12, 2024 Resident Creating Document: AMANDA MENDOZA RESIDENT Medical Necessity Reason Pt with a Central, PICC or Fol: No Subjective Review of Systems This is a 59-year-old male with a past medical history of hypertension, diabetes, BPH, hyperlipidemia, CKD and recent history sepsis secondary to UTI. Patient discharged about a week ago. Patient presented to the discharge clinic with complain weakness, malaise, no energy, fever with a temperature of 103 at home. He also complained of difficulties with micturition. He was sent to the ED for further care. In the ED, Initial lab workup revealed WBC 14.7, creatinine 2.8 ( baseline), BUN 38, serum glucose 277, magnesium 1.6, elevated alkaline phosphatase 138. Urinalysis revealed leukocyte esterase 3+, RBC 22, WBC 3999. Patient's Was recently hospitalized for acute UTI with sepsis, patient found to have Klebsiella pneumonia. CT abdomen and pelvis revealed-Mild bilateral hydronephrosis right greater than left. Bilateral ureterectasis to the ureterovesical junction bilaterally with no calculi noted. Diffuse bladder wall thickening ( 8-9 mm) may be secondary to infection or neoplasm. Prostate measures 4.2 x 4 cm. Per patient, during his most recent admission, he had abernathy's catheter for 6 days due to hesitancy. Of note, patient has been on tamsulosin for the past two years. He ran out about 2 months ago and could not refill. Past medical history: hypertension, diabetes, BPH, hyperlipidemia, CKD Past surgical history: None Past family history: Diabetes, heart diseases Social history: [employer] truck driver, drinking, no smoking Constitutional: Denies fever no chills no feeling of malaise HEENT: Denies headache, ear pain, ear discharges, conjunctivitis, nasal discharge throat pain Cardiovascular: Denies chest pain, palpitation, orthopnea, PND, or pedal edema Respiratory: Denies shortness of breath, cough, sputum production, hemoptysis, GI: Denies abdominal pain, nausea, vomiting, diarrhea, hematemesis, hematochezia, : Denies frequency, urgency, hematuria, right flank pain Endocrine: Denies unintentional weight gain or weight loss, feeling of hot flashes, Bertin: Denies easy bruising, bleeding disorders, epistaxis Musculoskeletal: Denies joint pains, muscle aches Psych: No evidence of depression, yony, suicidal ideation Objective vital signs Vital Sign Date Time Temp Pulse Resp B/P (MAP) Pulse Ox O2 Delivery O2 Flow Rate FiO2 07/12/24 16:00 98.0 98 18 129/95 (106) 98 98.0 07/12/24 08:44 Room Air* 0 21 Total Intake and Output 07/11/24 07/11/24 07/12/24 15:00 23:00 07:00 Intake Total 1050 ml 601 ml Balance 1050 ml 601 ml medications Current Medications Medications Dose Ordered Sig/Tom Route Start Time Stop Time Status Last Admin Dose Admin Sodium Chloride 10 ml Q8HR IV 07/11/24 22:00 07/12/24 13:57 10 ML Ondansetron HCl 4 mg Q4HP PRN IV 07/11/24 21:00 07/12/24 06:36 4 MG Docusate Sodium 100 mg BIDPRN PRN PO 07/11/24 21:00 Acetaminophen 650 mg Q6HP PRN PO 07/11/24 21:00 Morphine Sulfate 2 mg Q4HPRN PRN IV 07/11/24 21:00 Nitroglycerin 0.4 mg Q5MINP PRN SL 07/11/24 21:00 Morphine Sulfate 2 mg Q30M PRN IV 07/11/24 21:00 Hydralazine HCl 10 mg Q6HP PRN IV 07/11/24 22:00 Diagnostic Test (Pha) 1 strip ACHS 07/11/24 22:00 07/12/24 16:50 1 STRIP Insulin Human Regular ACHS SC 07/11/24 22:00 07/12/24 16:55 3 UNITS Dextrose 50 ml UD PRN IV 07/11/24 22:00 Insulin Glargine 15 units HS SC 07/11/24 22:00 07/12/24 00:30 15 UNITS Meropenem 50 ml @ 17 mls/hr Q12HR IV 07/12/24 02:00 07/12/24 12:16 17 MLS/HR Tamsulosin HCl 0.4 mg QPM PO 07/12/24 18:00 07/12/24 17:00 0.4 MG Sodium Chloride 1,000 ml @ 110 mls/hr Q9H6M IV 07/12/24 08:45 07/12/24 16:51 110 MLS/HR Ciprofloxacin 200 ml @ 200 mls/hr Q12HR IV 07/12/24 22:00 Examination General examination- Not in acute distress HEENT: PEERLA, no acute nasal discharge Chest: S1-S2 audible, rate and rhythm regular, no murmur Lung: CTAB, no wheeze or rhonchi Abdomen: Nondistend, BS+, nontenderness, no organomegaly, Right costophrenic angle tenderness Musculoskeletal: no acute joint swelling or tenderness Lower extremity: no leg edema Neurological: cranial nerves intact, no acute dysarthria or dysphagia Psychiatry-- Normal mood and affect Skin- no acute rash or purpura laboratory and microbiology Laboratory Tests 07/12/24 04:30 Test 07/12/24 04:30 Range/Units Serum Glucose 117 #H 74-106 mg/dL Problem List/Assessment/Plan Problem List/Assessment/Plan Sepsis secondary to complicated UTI wbc: 14.5--> 14.2 temp: 99.7--> 101 HR: 113 antibiotic: Ciprofloxacin Pyelonephritis --> see antibiotics above BENIGN PROSTATIC HYPERPLASIA --> PVR --> if PVR is > 300ml, place abernathy's catheter --> Tamsulosin CHRONIC KIDNEY DISEASE stage 4 --> GFR:25, 26 --> CR: 2.81--> 2.7 ( Baseline: 2) --> Consider nephrology consult if cr is not improving DIABETES TYPES 2 ---> get 1ac --> lantus 14 at 10 am --> Mild sliding scale Goal of care discussed for more than 30 minutes Case and plan discussed with Dr. Costa Plan discussed with: Patient My Orders My Orders Orders - AMANDA MENDOZA Procedure Category Date Status Time Ciprofloxacin PHA 07/12/24 In Process 400mg/200ml (Cipro Iv) 22:00 Communication Order ORDERS 07/12/24 Transmitted 14:58 Date of Service: Jul 12, 2024 Billing Provider: LATONYA GRANADOS MD Common Visit Codes: [id number] INP/OBS CARE(HIGH) AMANDA MENDOZA Jul 12, 2024 18:14 LATONYA GRANADOS MD Jul 18, 2024 00:12
[2024-07-12] MEDS: CIPROFLOXACIN 400MG/200ML 200 ML IV SCH (21:13)
[2024-07-13] VITALS (8 sets, daily range): BP systolic 119–134; BP diastolic 71–83; PULSE 77–100; RESP 16–20; TEMP 97.9–99.1; O2SAT 95–99
[2024-07-13 05:04] LABS: Basophils # (auto) 0.1 10 ^3/uL (0-0.2); Basophils % (auto) 1.2 % (0.0-2.0); Eosinophils # (auto) 0 10 ^3/uL (0-0.8); Eosinophils % (auto) 0.3 % (0.0-7.0); Hematocrit 31.1 % (41.0-53.0); Hemoglobin 10.7 g/dL (13.5-17.5); Lymphocytes # (auto) 1.4 10 ^3/uL (0.4-5.4); Mean Corpuscular Hemoglobin 31.2 pg (28.0-32.0); Mean Corpuscular Hgb Conc. 34.6 g/dL (32.0-36.0); Mean Corpuscular Volume 90.3 fL (80.0-100.0); Monocytes # (auto) 0.6 10 ^3/uL (0-1.3); Monocytes % (auto) 5.2 % (0.0-12.0); Neutrophils # (auto) 8.9 10 ^3/uL (1.6-8.6); Neutrophils % (auto) 80.3 % (37.0-80.0); Nucleated Red Blood Cells % 0.1 %; Platelet Count (auto) 358 10^3/uL (140-450); Red Blood Cells 3.44 10^6/uL (4.5-5.90); Red Cell Distribution Width 12.7 % (11.8-14.3); White Blood Cell 11.1 10^3/uL (4.4-10.8)
[2024-07-13] MEDS ORDERED: hydrALAZINE HCL 20 MG/ML VL IV PRN (06:45)
[2024-07-13 07:00] LABS: Alanine Aminotransferase 13 U/L (7-40); Albumin 3.6 g/dL (3.2-4.8); Alkaline Phosphatase 127 U/L (46-116); Anion Gap 10 (5-15); Aspartate Aminotransferase 11 U/L (13-40); BUN/Creatinine Ratio 15.2 (10.0-20.0); Bilirubin, Total 0.3 mg/dL (0.2-1.0); Blood Urea Nitrogen 39 mg/dL (9-23); Carbon Dioxide 21 mmol/L (20-31); Chloride 108 mmol/L (98-107); Glucose 146 mg/dL (74-106); Potassium 4.5 mmol/L (3.5-5.1); Sodium 139 mmol/L (136-145); Total Protein 6.2 g/dL (5.7-8.2)
[2024-07-13 08:06] LABS: Prostate Specific Antigen 0.4 ng/mL (0.0-4.0)
[2024-07-13] MEDS ORDERED: INSULIN LANTUS (GLARGINE) 1 /0.01ml (100units/ml) SC SCH (10:00)
--- NOTE | 2024-07-13 10:57 | DVHPNRES ---
Progress Note Date Seen: Jul 13, 2024 Resident Creating Document: AMANDA MENDOZA RESIDENT Medical Necessity Reason Pt with a Central, PICC or Fol: No Subjective Review of Systems Patient seen and examined today. He is lying comfortably in bed. He expressed feeling better than when he came in. He denies any new complaints. Vitals signs are stable and his wbc is trending down. Patient had renal US which showed bilateral [id number] hydronephrosis and hydroureter with diffuse urinary bladder wall thickening which may represent diffuse cystitis versus neoplasm. His post void residual measure 488( goal was < 300ml ). He is obviously still retaining some urine. Preliminary urine culture is growing gram negative evelyn. Review of system: Constitutional: Denies fever no chills no feeling of malaise HEENT: Denies headache, ear pain, ear discharges, conjunctivitis, nasal discharge throat pain Cardiovascular: Denies chest pain, palpitation, orthopnea, PND, or pedal edema Respiratory: Denies shortness of breath, cough, sputum production, hemoptysis, GI: Denies abdominal pain, nausea, vomiting, diarrhea, hematemesis, hematochezia, : Denies frequency, urgency, hematuria, right flank pain Endocrine: Denies unintentional weight gain or weight loss, feeling of hot flashes Bertin: Denies easy bruising, bleeding disorders, epistaxis Musculoskeletal: Denies joint pains, muscle aches Psych: No evidence of depression, yony, suicidal ideation Objective vital signs Vital Sign Date Time Temp Pulse Resp B/P (MAP) Pulse Ox O2 Delivery O2 Flow Rate FiO2 07/13/24 08:46 98.0 89 20 119/83 (95) 98 98.0 07/12/24 20:00 Room Air* 0 21 Total Intake and Output 07/12/24 07/12/24 07/13/24 15:00 23:00 07:00 Intake Total 200 ml 1280 ml Output Total 600 ml 1700 ml Balance -600 ml 200 ml -420 ml medications Current Medications Medications Dose Ordered Sig/Tom Route Start Time Stop Time Status Last Admin Dose Admin Sodium Chloride 10 ml Q8HR IV 07/11/24 22:00 07/13/24 05:44 10 ML Ondansetron HCl 4 mg Q4HP PRN IV 07/11/24 21:00 07/12/24 06:36 4 MG Docusate Sodium 100 mg BIDPRN PRN PO 07/11/24 21:00 Acetaminophen 650 mg Q6HP PRN PO 07/11/24 21:00 Morphine Sulfate 2 mg Q4HPRN PRN IV 07/11/24 21:00 Nitroglycerin 0.4 mg Q5MINP PRN SL 07/11/24 21:00 Morphine Sulfate 2 mg Q30M PRN IV 07/11/24 21:00 Diagnostic Test (Pha) 1 strip ACHS 07/11/24 22:00 07/13/24 06:23 1 STRIP Insulin Human Regular ACHS SC 07/11/24 22:00 07/13/24 06:23 2 UNITS Dextrose 50 ml UD PRN IV 07/11/24 22:00 Insulin Glargine 15 units HS SC 07/11/24 22:00 07/12/24 21:22 15 UNITS Tamsulosin HCl 0.4 mg QPM PO 07/12/24 18:00 07/12/24 17:00 0.4 MG Ciprofloxacin 200 ml @ 200 mls/hr Q12HR IV 07/12/24 22:00 07/13/24 09:32 200 MLS/HR Insulin Glargine 14 units DAILY@1000 SC 07/13/24 10:00 Hold Hydralazine HCl 10 mg Q6HP PRN IV 07/13/24 06:45 Examination General examination- Not in acute distress HEENT: PEERLA, no acute nasal discharge Chest: S1-S2 audible, rate and rhythm regular, no murmur Lung: CTAB, no wheeze or rhonchi Abdomen: Nondistend, BS+, nontenderness, no organomegaly, NO MORE Right costophrenic angle tenderness ( resolved) Musculoskeletal: no acute joint swelling or tenderness Extremity: no leg edema, Finger clubbing Neurological: cranial nerves intact, no acute dysarthria or dysphagia Psychiatry-- Normal mood and affect Skin- no acute rash or purpura laboratory and microbiology Laboratory Tests 07/13/24 04:28 Test 07/13/24 04:28 Range/Units Serum Glucose 146 H 74-106 mg/dL Microbiology Date/Time Source Procedure Growth Status 07/11/24 17:55 Blood Blood Culture - Preliminary NO GROWTH AFTER 24 HOURS OF INCUBATION. Resulted Problem List/Assessment/Plan Problem List/Assessment/Plan Sepsis secondary to complicated UTI --> leukocytosis trending down --> Vitals wnl --> Urine culture preliminary reading: Gram negative rods, pending full report --> Continue Ciprofloxacin Pyelonephritis --> see antibiotics above BENIGN PROSTATIC HYPERPLASIA --> PVR: 488 ml --> place coude abernathy's catheter --> Hold Tamsulosin ACUTE on CHRONIC KIDNEY DISEASE stage 4 --> GFR:25, 26 --> CR trending downward 2.57 ( Baseline: 2) --> Consider nephrology consult if cr is not improving Uncontrolled type II diabetes ---> Hgb A1c: 10.7 --> lantus 14 at 10 am --> Mild sliding scale Goal of care discussed for more than 25 minutes Case and plan discussed with Dr. Costa Plan discussed with: Patient My Orders My Orders Orders - AMANDA MENDOZA Procedure Category Date Status Time Ciprofloxacin PHA 07/12/24 In Process 400mg/200ml (Cipro Iv) 22:00 Communication Order ORDERS 07/12/24 Transmitted 14:58 Consistent DIET 07/12/24 Transmitted Carb(Ccho)Diabetes Dinner Insulin Lantus PHA 07/13/24 In Process (Glargine) (Lantus) 10:00 Hydralazine Injection PHA 07/13/24 In Process (Apresoline Inject 06:45 Communication Order ORDERS 07/13/24 Transmitted 10:47 Date of Service: Jul 13, 2024 Billing Provider: LATONYA GRANADOS MD Common Visit Codes: [id number] INP/OBS CARE(HIGH) AMANDA MENDOZA Jul 13, 2024 10:57 LATONYA GRANADOS MD Jul 18, 2024 00:07
[2024-07-13 13:07] LABS: PSA Free 0.05 ng/mL
[2024-07-13] MEDS: MUPIROCIN 2% OINT 15gm or 22gm FOR MRSA NARES EACHNOSTRI SCH (21:55)
[2024-07-14] VITALS (7 sets, daily range): BP systolic 113–143; BP diastolic 74–90; PULSE 64–83; RESP 16–19; TEMP 36.4; O2SAT 97–100
[2024-07-14 08:25] LABS: Basophils # (auto) 0.1 10 ^3/uL (0-0.2); Eosinophils # (auto) 0 10 ^3/uL (0-0.8); Eosinophils % (auto) 0.5 % (0.0-7.0); Hematocrit 32.1 % (41.0-53.0); Hemoglobin 10.8 g/dL (13.5-17.5); Lymphocytes # (auto) 1.3 10 ^3/uL (0.4-5.4); Lymphocytes % (auto) 18.9 % (10.0-50.0); Mean Corpuscular Hemoglobin 30.5 pg (28.0-32.0); Mean Corpuscular Hgb Conc. 33.7 g/dL (32.0-36.0); Mean Corpuscular Volume 90.5 fL (80.0-100.0); Monocytes # (auto) 0.4 10 ^3/uL (0-1.3); Neutrophils # (auto) 5.2 10 ^3/uL (1.6-8.6); Neutrophils % (auto) 73.6 % (37.0-80.0); Nucleated Red Blood Cells % 0.1 %; Platelet Count (auto) 390 10^3/uL (140-450); Red Blood Cells 3.54 10^6/uL (4.5-5.90); Red Cell Distribution Width 12.9 % (11.8-14.3)
[2024-07-14 08:37] LABS: Potassium 4.3 mmol/L (3.5-5.1); Sodium 140 mmol/L (136-145)
[2024-07-14 08:38] LABS: Anion Gap 9 (5-15); Calcium 9.5 mg/dL (8.7-10.4); Carbon Dioxide 23 mmol/L (20-31)
[2024-07-14 08:40] LABS: Chloride 108 mmol/L (98-107)
[2024-07-14 08:43] LABS: BUN/Creatinine Ratio 16.1 (10.0-20.0)
[2024-07-14 08:44] LABS: Blood Urea Nitrogen 37 mg/dL (9-23); Glucose 134 mg/dL (74-106)
[2024-07-14] MEDS ORDERED: CIPR-173 PO (14:14)
[2024-07-14] MEDS ORDERED: MUPI2OIN2 EACHNOSTRI (14:14)
--- NOTE | 2024-07-14 23:05 | DVHDSRES ---
Discharge Summary Date of Admission Resident Creating Document: AMANDA NICOLE RESIDENT Jul 11, 2024 at 20:48 Date of Discharge: Jul 14, 2024 Admitting Diagnosis Chills and fever with urinary retention along with flank pain Labs/Diagnostic Data: Laboratory Results Test 07/14/24 17:10 07/14/24 07:49 07/13/24 04:28 07/12/24 10:05 POC Glucose 201 mg/dl (70-106) White Blood Count 7.0 10^3/uL (4.4-10.8) Red Blood Count 3.54 10^6/uL (4.5-5.90) Hemoglobin 10.8 g/dL (13.5-17.5) Hematocrit 32.1 % (41.0-53.0) Mean Corpuscular Volume 90.5 fL (80.0-100.0) Mean Corpuscular Hemoglobin 30.5 pg (28.0-32.0) Mean Corpuscular Hemoglobin Concent 33.7 g/dL (32.0-36.0) Red Cell Distribution Width 12.9 % (11.8-14.3) Platelet Count 390 10^3/uL (140-450) Mean Platelet Volume 7.5 fL (6.9-10.8) Neutrophils (%) (Auto) 73.6 % (37.0-80.0) Lymphocytes (%) (Auto) 18.9 % (10.0-50.0) Monocytes (%) (Auto) 6.0 % (0.0-12.0) Eosinophils (%) (Auto) 0.5 % (0.0-7.0) Basophils (%) (Auto) 1.0 % (0.0-2.0) Neutrophils # (Auto) 5.2 10 ^3/uL (1.6-8.6) Lymphocytes # (Auto) 1.3 10 ^3/uL (0.4-5.4) Monocytes # (Auto) 0.4 10 ^3/uL (0-1.3) Eosinophils # (Auto) 0 10 ^3/uL (0-0.8) Basophils # (Auto) 0.1 10 ^3/uL (0-0.2) Nucleated Red Blood Cells 0.1 % Sodium Level 140 mmol/L (136-145) Potassium Level 4.3 mmol/L (3.5-5.1) Chloride Level 108 mmol/L (98-107) Carbon Dioxide Level 23 mmol/L (20-31) Anion Gap 9 (5-15) Blood Urea Nitrogen 37 mg/dL (9-23) Creatinine 2.30 mg/dL (0.700-1.30) Glomerular Filtration Rate Calc 32 mL/min (>90) BUN/Creatinine Ratio 16.1 (10.0-20.0) Serum Glucose 134 mg/dL (74-106) Calcium Level 9.5 mg/dL (8.7-10.4) Total Bilirubin 0.3 mg/dL (0.2-1.0) Aspartate Amino Transferase (AST) 11 U/L (13-40) Alanine Aminotransferase (ALT) 13 U/L (7-40) Alkaline Phosphatase 127 U/L (46-116) Total Protein 6.2 g/dL (5.7-8.2) Albumin 3.6 g/dL (3.2-4.8) Lactic Acid Level 0.9 mmol/L (0.4-2.0) Test 07/12/24 04:30 07/11/24 22:50 07/11/24 19:43 07/11/24 17:50 Hemoglobin A1c 10.7 % A1C (<5.7) Phosphorus Level 2.4 mg/dL (2.4-5.1) Magnesium Level 2.0 mg/dL (1.6-2.6) Free Prostate Specific Antigen 0.05 ng/mL (N/A) Percent Free Prostate Specific Ag 12.5 % (.) Prostate Specific Antigen Total 0.4 ng/mL (0.0-4.0) Troponin I High Sensitivity 6 ng/L (</=54) Urine Color Colorless (Yellow) Urine Clarity Ex.turbid (Clear) Urine pH 6.5 (5.0-9.0) Urine Specific Gooding 1.010 (1.001-1.035) Urine Protein 1+ (Negative) Urine Ketones Trace (Negative) Urine Blood 2+ /uL (Negative) Urine Nitrite Negative (Negative) Urine Bilirubin Negative (Negative) Urine Urobilinogen Normal mg/dL (Negative) Urine Leukocyte Esterase 3+ /uL (Negative) Urine RBC 22 /hpf (0 - 3) Urine WBC 3999 /hpf (0 - 3) Urine WBC Clumps Present /hpf (None Seen) Urine Squamous Epithelial Cells None seen /hpf (<5) Urine Bacteria None seen /hpf (None Seen) Urine Osmolality 417 mOsm/kg Urine Creatinine 78.31 mg/dL (30.0-125.0) Urine Protein/Creatinine Ratio 1.19 Urine Sodium 59 mmol/L (40-220) Urine Glucose 2+ mg/dL (Normal) Urine Total Protein 93.3 mg/dL (1-14) Urine Opiates Screen Neg (NEGATIVE) Urine Fentanyl Screen Neg (NEGATIVE) Urine Barbiturates Screen Neg (NEGATIVE) Urine Phencyclidine Screen Neg (NEGATIVE) Urine Amphetamines Screen Neg (NEGATIVE) Urine Benzodiazepines Screen Neg (NEGATIVE) Urine Cocaine Screen Neg (NEGATIVE) Urine Cannabinoids Screen Neg (NEGATIVE) Influenza Type A Antigen Negative (Negative) Influenza Type B Antigen Negative (Negative) SARS-CoV-2 Antigen (Rapid) Negative (NEGATIVE) Other Laboratory Tests 07/14/24 07:49 Brief Hx & Hospital Course: This 59-year-old male with a past medical history of hypertension, diabetes, BPH, hyperlipidemia, CKD and recent history sepsis secondary to UTI presented to the ED with right flank pain, urine retention and fever. Patient was discharged a week ago and he reported to the discharge clinic with complain weakness, malaise, no energy, fever with a temperature of 103 measured at home. He also complained of difficulties with micturition. He was sent to the ED for further care. In the ED, Initial lab workup revealed WBC 14.7, creatinine 2.8 ( baseline), BUN 38, serum glucose 277, magnesium 1.6, elevated alkaline phosphatase 138. Urinalysis revealed leukocyte esterase 3+, RBC 22, WBC 3999. Patient's Was recently hospitalized for acute UTI with sepsis, patient found to have Klebsiella pneumonia. CT abdomen and pelvis revealed-Mild bilateral hydronephrosis right greater than left. Bilateral ureterectasis to the ureterovesical junction bilaterally with no calculi noted. Diffuse bladder wall thickening ( 8-9 mm) may be secondary to infection or neoplasm. Prostate measures 4.2 x 4 cm. Per patient, during his most recent admission, he had abernathy's catheter for 6 days due to hesitancy. Of note, patient has been on tamsulosin for the past two years. He ran out about 2 months ago and could not refill. The patient was manage for complicatd UTI with broad spectrum antibiotics. He felt much better after a day of antibiotics and he was passing significant amount of urine once on the tamsulosin. We did a bladder scan and it showed post voidal residual amount of 488ml. Urology agreed for catheter if PVR was more than 300ml. On day 3, blood culture returned negative. Patient felt great. A repeat of the bladder scan showed 760 ml of PVR. Passed a coude catheter and discharge patient home on ciprofloxacin. Patient advised to follow up at the discharge clinic on thursday and also follow up with his urologist for future evaluation and management. Examination on the day of discharge: General examination- Not in acute distress HEENT: PEERLA, no acute nasal discharge Chest: S1-S2 audible, rate and rhythm regular, no murmur Lung: CTAB, no wheeze or rhonchi Abdomen: Nondistend, BS+, nontenderness, no organomegaly, NO MORE Right costophrenic angle tenderness (resolved) Musculoskeletal: no acute joint swelling or tenderness Extremity: no leg edema, Finger clubbing Neurological: cranial nerves intact, no acute dysarthria or dysphagia Psychiatry-- Normal mood and affect Skin- no acute rash or purpura Bladder scan07/14/2024: 760ml coude catheter passed: Dr. Nicole and Cecilia ( Patient's nurse) From our medical standpoint, patient is stable for charge. To follow up at the discharge clinic on Thursday and also follow up with his urologist for future evaluation and management. Discussed with Dr. Ramírez Consults/Reason for consult Reason for urology consultation: hydronephrosis Operations or Procedures ORDERING PHYSICIAN: KATT DA SILVA DO PROCEDURE(s): CXRP - CHEST PORTABLE REASON: fever/weak ORDER NUMBER(s): [id number], ACCESSION NUMBER(s): [id number] AP portable chest REASON FOR EXAM: fever/weak INDICATION: fever/weak FINDINGS: Heart size is . Aorta is tortuous. There are no infiltrates or effusions. Degenerative changes in the thoracic spine. IMPRESSION: 1. No acute cardiopulmonary pathology. ATED BY: JUDY PIÑA MD DICTATED DATE/TIME: 07/11/24 7967 ORDERING PHYSICIAN: CHAPIS BIGGS RESIDENT PROCEDURE(s): ABPL - CT AB PEL WO CON-NO ORAL OR IV REASON: SUSPECTED PYELONEPHRITIS ORDER NUMBER(s): [id number], ACCESSION NUMBER(s): [id number] Exam: CT CT AB PEL WO CON-NO ORAL OR IV History: SUSPECTED PYELONEPHRITIS Comparison Study: None available at time of dictation. TECHNIQUE: Multidetector CT of the abdomen was performed from lung bases to pubic symphysis. Imaging was performed without IV contrast. Axial, coronal and sagittal multiplanar reformats were obtained from the axial data set by the technologist. Radiation Dose Information: CT Dose: CTDI volume is 7.94 mGy. Dose-length product is 437.99 mGy*cm FINDINGS: Evaluation of solid organs is limited due to lack of intravenous contrast use. Findings: Lung Bases: No acute or significant lung base finding. Normal heart size. No pleural or pericardial effusion. Liver: The liver is normal in size. No focal lesions. 16 17 mm cyst in the right lobe of the liver. Gallbladder and Biliary Tree: Unremarkable Spleen: Unremarkable Pancreas: The pancreas is grossly normal in appearance. Adrenal Glands: Unremarkable Kidneys: Mild bilateral hydronephrosis with ureteral dilatation to the bladder. Bladder: Bladder wall thickening may be secondary to infection or neoplasm. Bowel: The stomach is grossly normal in appearance. Small bowel and colon are normal in caliber and distribution. The appendix is not visualized; however, no secondary findings of acute appendicitis identified. Ascites: Absent Lymphadenopathy: No mesenteric, retroperitoneal or periportal lymphadenopathy. Abdominal Wall and Mesentery: Unremarkable. Vasculature: The visualized abdominal aorta is normal in size and caliber. Evaluation of abdominal and pelvic vessels is limited due to lack of intravenous contrast. Pelvic Organs: Prostate measures 4.2 by 4 cm Musculoskeletal: No aggressive focal bony lesions, acute fractures or dislocation. Soft tissues: Unremarkable IMPRESSION: 1. Mild bilateral hydronephrosis right greater than left. 2. Bilateral ureterectasis to the ureterovesical junction bilaterally with no calculi noted. 3. Diffuse bladder wall thickening ( 8-9 mm) may be secondary to infection or neoplasm. 4. Prostate measures 4.2 x 4 cm Radiation optimization: All CT scans at this facility use at least one of these dose optimization techniques: automated exposure control mA and/or kV adjustment per patient size (includes targeted exams where dose is matched to clinical indication) or iterative reconstruction. ATED BY: JUDY RIVAS Jr., DO DICTATED DATE/TIME: 07/11/24 0494 ORDERING PHYSICIAN: CHAPIS BIGGS RESIDENT PROCEDURE(s): KIDUS - KIDNEY REASON: FEVER, WEAKNESS ORDER NUMBER(s): [id number], ACCESSION NUMBER(s): [id number] KIDNEY HISTORY: FEVER, WEAKNESS COMPARISON: CT 07/11/2024 TECHNIQUE: Real-time ultrasound grayscale and color Doppler images were obtained of the kidneys and bladder. FINDINGS: The right kidney measures 9.8 cm in length. Left kidney measures 8.9 cm in length. There is bilateral hydronephrosis. The kidneys appear lobulated in contour. Renal cortex appears preserved. No sonographically evident calculus or mass. The urinary bladder demonstrates diffuse wall thickening with increased vascularity. Prevoid volume of 778 ML. Postvoid volume of 488 ML IMPRESSION: 1. Bilateral [id number] hydronephrosis and hydroureter with diffuse urinary bladder wall thickening which may represent diffuse cystitis versus neoplasm. Correlation with urinalysis is recommended. Findings are similar to prior CT. HS:Y ATED BY: DEVAUGHN TIAN MD DICTATED DATE/TIME: 07/12/24 0405 Condition at Discharge: Stable Final Diagnosis/Problems List Complicated UTI/pyelonephritis JESUS on CKD4 BPH Urine retention hyperlipidemia Uncontrolled diabetes Diffuse bladder wall thickening ( 8-9 mm) may be secondary to infection or neoplasm Discharge Disposition: Home Discharge Instruct/Medications Diet: Consistent carbohydrate Activity: No Restrictions, As Tolerated Follow Up/Referral: FU with PCP/discharge clinic in 1 week FU with urologist for cystoscopy Medications: continue cipro 500mg po bid for 7 days Discharge Statement: "Patient was advised to return to the ER or call 911 if any headaches, dizziness, shortness of breath, chest pain, abdominal pain, bleeding, fevers, or worsening of medical condition. Patient was counseled about treatment plan, medications, possible side effects, patientverbalized understanding. All questions were answered to the best of my ability. This discharge took greater then 30 minutes in planning, reviewing documentation, counseling the patient, and discussing with other team members." ASSESSMENT ASSESSMENT Assessment UTI Addendum Addendum Addendum I was physically present for the schaeffer portions of the service provided to patient by THE RESIDENT. I have reviewed the documentation, discussed the case with resident and agree with the resident's documentation except as noted. Also the patient's clinical case was discussed with the patient's nurse. This medical document was created using an electronic medical record system with computerized dictation system. Although this document has been carefully reviewed, there might still be some phonetic and typographical errors. These areas are purely typographical due to imperfections of the software programs, and do not reflect any compromise in the patient's medical care. Late signature. Date of Service: Jul 14, 2024 Billing Provider: NOEL RAMÍREZ MD Common Visit Codes: 80057-NZG/[id number] DISCH DAY >30min AMANDA NICOLE RESIDENT Jul 14, 2024 23:05 NOEL RAMÍREZ MD Jul 16, 2024 05:10
== END 2024-07-14 17:15 | disposition home or self-care (01) | DRG 720 ==
LOC: ER 16:52 → OVERFLOW 20:48 → CENTRAL 07-12 15:59
PROVIDERS: ADMIT Student in an Organized Health Care Education/Training Program; ATTEND Student in an Organized Health Care Education/Training Program
DX: A41.9 Sepsis, unspecified organism (principal); N17.0 Acute kidney failure with tubular necrosis; E11.22 Type 2 diabetes mellitus with diabetic chronic kidney disease; N18.4 Chronic kidney disease, stage 4 (severe); N13.6 Pyonephrosis; I12.9 Hypertensive chronic kidney disease with stage 1 through stage 4 chronic kidney disease, or unspecified chronic kidney disease; Z20.822 Contact with and (suspected) exposure to COVID-19; E83.42 Hypomagnesemia; N40.1 Benign prostatic hyperplasia with lower urinary tract symptoms; Z87.891 Personal history of nicotine dependence; Z79.899 Other long term (current) drug therapy; Z79.84 Long term (current) use of oral hypoglycemic drugs; Z79.4 Long term (current) use of insulin
CPT/HCPCS: 36415; 71045; 74176; 76775; 80048; 80053; 80307; 81001; 82570; 82962; 83036; 83605; 83735; 83935; 84100; 84154; 84156; 84300; 84484; 85025; 87040; 87081; 87086; 87088; 87186; 87426; 87804; G0378; J1815; J2185; J2405

== ENCOUNTER 2025-04-17 09:50 | Inpatient (IN) | payer MEDICAID ==
[~2025-04-17] VITALS: Ht 160 cm; Wt 72.0 kg
[~2025-04-17 09:50] MED LIST changes: +ATOR40TA52 PO; +CIPR-173 PO; +GLIP5TAB21 PO; +INSUINJ37 SC; +LISI10TA34 PO; +MUPI2OIN2 EACHNOSTRI; +TAMS0.4C39 PO
--- NOTE | 2025-04-17 11:01 | ED.PDOC ---
General HPI Comments This is a 60-year-old male with past medical history of hypertension, diabetes, dyslipidemia, CKD and BPH came to the hospital due to abdominal pain since 7 days. Pain is localized at lower abdomen, intermittent, 6/10, with no clear exacerbating or relieving factor. Per patient, he also reports of fever, diarrhea, headache, generalized weakness, a cap, nausea, abdominal pain and inability to pass urine. Per patient, he had taking some food 1 week back, subsequently he developed abdominal pain and diarrhea. He denies chest pain, shortness of breath, headache, blurry vision, any recent motor or sensory deficits. Last year, he was also admitted in the hospital due to UTI and urinary retention secondary to BPH. Patient was seen by urologist and recommended medical management, but the patient has not been compliant with medication. Home meds: Mehrdad, amlodipine, glimepiride, Flomax, lisinopril, atorvastatin, and hydrochlorothiazide Social: Ex-smoker with 20 pack year history, denies any other drug use Chief Complaint: Abdominal Pain Time Seen by MD: 09:54 Allergies: Coded Allergies: NO KNOWN ALLERGIES (Unverified , 07/11/24) Home Meds Active Scripts Ciprofloxacin Hcl (Cipro) 500 Mg Tab, 1 TAB PO BID for 7 Days, #14 TAB Prov:HOWARD CROSS RESIDENT 07/14/24 Mupirocin (Pseudomonas Fluores (Mupirocin) 2 % Oin, 1 APPLIC EACHNOSTRI BID for 7 Days, #1 OIN Prov:HOWARD CROSS RESIDENT 07/14/24 Reported Medications Hydrochlorothiazide (Hydrochlorothiazide) 12.5 Mg Cap, 1 MG PO DAILY for 90 Days, #90 07/13/24 Pantoprazole Sodium Sesquihydr (Pantoprazole Sodium) 40 Mg Tab, 1 TAB PO BID for 30 Days, #60 07/13/24 Insulin Glargine (Lantus Solostar) 100 Unit/Ml Inj, 100 UNIT SC DAILY, INJ 07/12/24 Lisinopril (Lisinopril) 10 Mg Tab, 10 MG PO DAILY, TAB 07/12/24 Glipizide (Glipizide) 5 Mg Tab, 1 TAB PO DAILY, #90 TAB 3 Refills 07/12/24 Atorvastatin Calcium (ATORVASTATIN CALCIUM) 40 Mg Tab, 1 TAB PO QPM, #30 TAB 5 Refills 07/12/24 Tamsulosin Hcl (Tamsulosin Hcl) 0.4 Mg Cap, 0.4 MG PO DAILY, CAP 07/12/24 Mode of Arrival: Ambulatory Past Medical History PAST MEDICAL HISTORY: DM, High Lipids, HTN Family History Family History: Reviewed,noncontributory to illness, No family hx of Cancer, No family hx of DM, No family hx of Heart willie, No family hx of HTN, No family hx ofKidney willie, No family hx of Liver willie, No family hx of Lung willie, No family hx of Stroke Social History Smoker: Cigarettes Alcohol: Denies ETOH Use Drugs: Denies Drug Use Constitutional: reports: fever, weakness; denies: chills, diaphoresis, fatigue, malaise, sweats, others EENTM: denies: blurred vision, double vision, ear bleeding, ear discharge, ear drainage, ear pain, ear ringing, eye pain, eye redness, hearing loss, mouth pain, mouth swelling, nasal discharge, nose bleeding, nose congestion, nose pain, photophobia, tearing, throat pain, throat swelling, voice changes, others Respiratory: denies: cough, hemoptysis, orthopnea, SOB at rest, shortness of b reath, SOB with excertion, stridor, wheezing, others Cardiovascular: denies: chest pain, dizzy spells, diaphoresis, Dyspnea on exertion, edema, irregular heart beat, left arm pain, lightheadedness, palpitations, PND, syncope, others Gastrointestinal: reports: abdomen distended, abdominal pain, diarrhea, nausea, poor fluid intake, vomiting; denies: blood streaked bowels, constipated, dysphagia, difficulty swallowing, hematemesis, melena, poor appetite, rectal bleeding, rectal pain, others Genitourinary: reports: dysuria, urgency; denies: burning, flank pain, frequency, hematuria, incontinence, penile discharge, penile sore, pain, testicle pain, testicle swelling, others Neurological: denies: dizziness, fainting, headache, left sided numbness, left sided weakness, numbness, paresthesia, pre-existing deficit, right sided numbness, right sided weakness, seizure, speech problems, tingling, tremors, weakness, others Musculoskeletal: denies: back pain, gout, joint pain, joint swelling, muscle p ain, muscle stiffness, neck pain, others Integumetry: denies: bruises, change in color, change in hair/nails, dryness, laceration, lesions, lumps, rash, wounds, others Allergic/Immunocompromised: denies: Difficulty Healing, Frequent Infections, Hives, Itching, others Hematologic/Lymphatic: denies: anemia, blood clots, easy bleeding, easy bruising, swollen glands, others Endocrine: denies: excessive hunger, excessive sweating, excessive thirst, excessive urination, flushing, intolerance to cold, intolerance to heat, unexplained weight gain, unexplained weight loss, others Psychiatric: denies: anxiety, bipolar disorder, depression, hopeless, panic disorder, schizophrenia, sleepless, suicidal, others Physical Exam General Appearance: No Apparent Distress, Normal HEENT: Normal ENT Inspection, Pharynx Normal, TMs Normal Neck: Full Range of Motion, Non-Tender, Normal, Normal Inspection Respiratory: Chest Non-Tender, Lungs Clear, No Accessory Muscle Use, No Respiratory Distress, Normal Breath Sounds Cardiovascular: No Edema, No JVD, No Murmur, No Gallop, Normal Peripheral Pulses, Regular Rate/Rhythm Breast Exam: Deferred Gastrointestinal: Distended, No Organomegaly, No Pulsatile Mass, Normal Bowel Sounds, Soft, Suprapubic, Tenderness Genitalia: Deferred Pelvic: Deferred Rectal: Deferred Extremities: No calf tenderness, Normal capillary refill, Normal inspection, Normal range of motion, Non-tender, No pedal edema Neurologic: Alert, software test developer II-XII nml as Tested, No Motor Deficits, Normal Affect, Normal Mood, No Sensory Deficits Cerebellar Function: Normal Reflexes: Normal Skin: Dry, Normal Color, Warm Lymphatic: No Adenopathy Was a procedure done? Was a procedure done?: No Differential Diagnosis Kidney stone (Female): Pyelonephritis, Renal failure, Urinary obstruction Kidney stone (Male): Pyelonephritis, Urinary obstruction, Urinary tract infection Penile/Scrotal: Prostatitis X-Ray, Labs, Meds, VS Vital Signs Date Time Temp Pulse Resp B/P (MAP) Pulse Ox O2 Delivery O2 Flow Rate FiO2 04/17/25 11:58 99 18 125/70 (88) 99 04/17/25 10:15 Room Air* 0 21 04/17/25 09:53 98.4 107 18 108/79 98 98.4 Lab Test 04/17/25 10:59 04/17/25 10:58 Range/Units White Blood Count 13.5 H 4.4-10.8 10^3/uL Red Blood Count 4.86 4.5-5.90 10^6/uL Hemoglobin 15.4 13.5-17.5 g/dL Hematocrit 44.9 41.0-53.0 % Mean Corpuscular Volume 92.3 80.0-100.0 fL Mean Corpuscular Hemoglobin 31.8 28.0-32.0 pg Mean Corpuscular Hemoglobin Concent 34.4 32.0-36.0 g/dL Red Cell Distribution Width 12.5 11.8-14.3 % Platelet Count 380 140-450 10^3/uL Mean Platelet Volume 8.4 6.9-10.8 fL Neutrophils (%) (Auto) 81.7 H 37.0-80.0 % Lymphocytes (%) (Auto) 11.8 10.0-50.0 % Monocytes (%) (Auto) 6.3 0.0-12.0 % Eosinophils (%) (Auto) 0.1 0.0-7.0 % Basophils (%) (Auto) 0.1 0.0-2.0 % Neutrophils # (Auto) 11.0 H 1.6-8.6 10 ^3/uL Lymphocytes # (Auto) 1.6 0.4-5.4 10 ^3/uL Monocytes # (Auto) 0.8 0-1.3 10 ^3/uL Eosinophils # (Auto) 0 0-0.8 10 ^3/uL Basophils # (Auto) 0 0-0.2 10 ^3/uL Nucleated Red Blood Cells 0.0 % Sodium Level 132 L 136-145 mmol/L Potassium Level 5.1 3.5-5.1 mmol/L Chloride Level 97 L 98-107 mmol/L Carbon Dioxide Level 22 20-31 mmol/L Anion Gap 13 5-15 Blood Urea Nitrogen 35 H 9-23 mg/dL Creatinine 3.50 H 0.700-1.30 mg/dL Glomerular Filtration Rate Calc 19 >90 mL/min BUN/Creatinine Ratio 10.0 10.0-20.0 Serum Glucose 341 H 74-106 mg/dL Calcium Level 9.7 8.7-10.4 mg/dL Magnesium Level 2.2 1.6-2.6 mg/dL Total Bilirubin 0.5 0.2-1.0 mg/dL Aspartate Amino Transferase (AST) 11 L 13-40 U/L Alanine Aminotransferase (ALT) 16 7-40 U/L Alkaline Phosphatase 128 H 46-116 U/L Total Protein 8.6 H 5.7-8.2 g/dL Albumin 4.7 3.2-4.8 g/dL Urine Opiates Screen Neg NEGATIVE Urine Fentanyl Screen Neg NEGATIVE Urine Barbiturates Screen Neg NEGATIVE Urine Phencyclidine Screen Neg NEGATIVE Urine Amphetamines Screen Neg NEGATIVE Urine Benzodiazepines Screen Neg NEGATIVE Urine Cocaine Screen Neg NEGATIVE Urine Cannabinoids Screen Neg NEGATIVE Urine Color Colorless Yellow Urine Clarity Turbid H Clear Urine pH 5.5 5.0-9.0 Urine Specific [place] 1.010 1.001-1.035 Urine Protein 1+ H Negative Urine Ketones Negative Negative Urine Blood Trace H Negative /uL Urine Nitrite Negative Negative Urine Bilirubin Negative Negative Urine Urobilinogen Normal Negative mg/dL Urine Leukocyte Esterase 3+ Negative /uL Urine RBC 1 0 - 3 /hpf Urine WBC Clumps Present None Seen /hpf Urine Microscopic WBC 220 H 0-3 /HPF Urine Squamous Epithelial Cells None seen <5 /hpf Urine Bacteria Few H None Seen /hpf Urine Mucus Few None Seen Urine Yeast (Budding) Occasional None Seen /hpf Urine Glucose 3+ H Normal mg/dL Current Medications Medications (Trade) Dose Ordered Sig/Tom Route Start Time Stop Time Status Last Admin Sodium Chloride 500 ml @ 500 mls/hr Q1H ONCE IV 04/17/25 11:00 04/17/25 11:59 DC 04/17/25 11:05 Time of 1ST Reevaluation: 12:00 Reevaluation 1ST: Improved Time of 2ND Reevaluation: 22:00 Reevaluation 2ND: Improved Patient Education/Counseling: Diagnosis, Treatment, Prognosis, Need For Follow Up Family Education/Counseling: No Family Present Comments Patient came to the hospital due to abdominal pain, and urinary retention. Patient was not able to pass urine. Whitman catheter placed, and drained more than 400 mL urine Urine culture and urinalysis was sent. Urinalysis shows WBC at 220., leukocyte esterase 3+, and few bacteria CBC shows WBC raised at 13.5 Creatinine raised at 3.5 Patient was given empiric antibiotic of Rocephin and IV fluid The patient will be admitted for further workup including urine culture SEPSIS Sepsis Screen Date sepsis recognized/suspect: Apr 17, 2025 Time Sepsis recognized/suspect: 1022 Recent Procedure: No On Antibiotic Therapy: No Respiratory Rate >20: No Heart Rate >90: Yes Temp<36 C (96.8 F) or >38.3 C: No SBP <90 or MAP <65 mmHG: No New Acute Mental Status Change: No Is the patient on CPAP, BIPAP,: No Physician Orders Urine Bacterial Culture (04/17/25 10:26) Ceftriaxone 1gm/50ml D5w (Rocephin) (04/17/25 14:15) Vital Signs Date Time Temp Pulse Resp B/P (MAP) Pulse Ox O2 Delivery O2 Flow Rate FiO2 04/17/25 11:58 99 18 125/70 (88) 99 04/17/25 10:15 Room Air* 0 21 04/17/25 09:53 98.4 107 18 108/79 98 98.4 Laboratory Tests Test 04/17/25 10:59 White Blood Count 13.5 10^3/uL (4.4-10.8) H Medications Medications Dose Ordered Sig/Tom Route Start Time Stop Time Status Last Admin Dose Admin Sodium Chloride 500 ml @ 500 mls/hr Q1H ONCE IV 04/17/25 11:00 04/17/25 11:59 DC 04/17/25 11:05 Departure 1 Departure Time of Disposition: 14:35 Impression: Primary Impression: Urinary tract infection Additional Impressions: BPH loc w urin obs/LUTS Acute renal insufficiency Disposition: ADMITTED INPATIENT Admit to: Med Surg Condition: Guarded Critical Care Note Critical Care Time?: No Stability Stability form required: AUDREY Delgado RESRICO Apr 17, 2025 11:01
[2025-04-17] MEDS: SODIUM CHLORIDE 0.9% 500 ML IV ONE (11:05)
[2025-04-17] MEDS: LIDOCAINE HCL 5 % TOP OINT 35 GM TOP ONE (11:08)
[2025-04-17 11:16] LABS: Urine Budding Yeast OCCASIONAL /hpf (None Seen); Urine Protein, UAD 1+ (Negative); Urine WBC Clumps PRESENT /hpf (None Seen)
[2025-04-17 11:21] LABS: Amphetamine Screen, Urine Neg (NEGATIVE); Barbiturate Scree,Urine Neg (NEGATIVE); Benzodiazephine Screen, Urine Neg (NEGATIVE); Cocaine Screen, Urine Neg (NEGATIVE)
[2025-04-17 11:22] LABS: Cannabinoid Screen, Urine Neg (NEGATIVE); Opiate Scree,Urine Neg (NEGATIVE); Phencyclidine Screen, Urine Neg (NEGATIVE)
[2025-04-17 11:30] LABS: Hematocrit 44.9 % (41.0-53.0); Hemoglobin 15.4 g/dL (13.5-17.5); Mean Corpuscular Hemoglobin 31.8 pg (28.0-32.0); Mean Corpuscular Volume 92.3 fL (80.0-100.0); Nucleated Red Blood Cells % 0.0 %
[2025-04-17 11:47] LABS: Alanine Aminotransferase 16 U/L (7-40); Albumin 4.7 g/dL (3.2-4.8); Anion Gap 13 (5-15); BUN/Creatinine Ratio 10.0 (10.0-20.0); Bilirubin, Total 0.5 mg/dL (0.2-1.0); Calcium 9.7 mg/dL (8.7-10.4); Carbon Dioxide 22 mmol/L (20-31); Magnesium 2.2 mg/dL (1.6-2.6); Potassium 5.1 mmol/L (3.5-5.1)
[2025-04-17 11:57] LABS: Alkaline Phosphatase 128 U/L (46-116); Blood Urea Nitrogen 35 mg/dL (9-23); Chloride 97 mmol/L (98-107); Glucose 341 mg/dL (74-106); Sodium 132 mmol/L (136-145); Total Protein 8.6 g/dL (5.7-8.2)
[2025-04-17] MEDS: ACETAMINOPHEN 325 MG TAB PO ONE (14:58)
[2025-04-17] MEDS ORDERED: DOCUSATE SOD 100 MG CAP PO PRN (15:15)
[2025-04-17] MEDS ORDERED: HYDROcodone-ACET 5/325MG TAB PO PRN (15:15)
[2025-04-17] MEDS ORDERED: DEXTROSE (50%) 50ML SYRG IV PRN (15:15)
[2025-04-17] MEDS ORDERED: ONDANSETRON HCL 4 MG/2 ML VIAL IV PRN (15:15)
[2025-04-17] MEDS ORDERED: SODIUM CHLORIDE 0.9% 1,000 ML IV SCH (16:15)
--- NOTE | 2025-04-17 16:37 | DVHHP2 ---
History of Present Illness Reason for Visit: Abdominal pain History of Present Illness 60-year-old male with past medical history of hypertension, diabetes, dyslipidemia, chronic kidney disease and BPH came to hospital due to abdominal pain x7 days. Patient describes pain as lower abdomen, intermittent, currently 5/10. Patient states it has also been difficult for him to pass urine. Patient was admitted to the hospital due to UTI and urinary retention secondary to BPH approximately 1 year ago, was seen by Urology but patient has not been compliant with medication. Patient also notes that he has not been compliant with his diabetic medication as well, he reports taking his Lantus but not checking blood sugars throughout the day and not taking his lispro. Patient will be admitted to medical/surgical for management/treatment as well as antibiotics. Past Medical History DM, High Lipids, HTN Past Surgical History Denies Family History Denies Smoke: # pack years (20) ALCOHOL: none Drugs: None Lives: Alone Review of Systems Constitutional: No: Fever, Chills, Sweats, Weakness, Malaise, Other Eyes: No: Pain, Vision change, Conjunctivae inflammation, Eyelid inflammation, Other, Redness Respiratory: No: Cough, Dry, Shortness of breath, SOB with excertion, Wheezing, Hemoptysis, Pleuritic Pain, Sputum, Wheezing, Other Cardiovascular: No: Chest Pain, Palpitations, Orthopnea, Paroxysmal Noc. Dyspnea, Edema, Lt Headedness, Other Gastrointestinal: Abdominal Pain; No: Nausea, Vomiting, Diarrhea, Constipation, Melena, Hematochezia, Other Genitourinary: Dysuria; No Frequency, No Incontinence, No Hematuria, No Retention, No Other Musculoskeletal: No: other, neck pain, shoulder pain, arm pain, back pain, hand pain, leg pain, foot pain Skin: No: Rash, Lesions, Jaundice, Bruising, Other Neurological: No: Weakness, Numbness, Incoordination, Change in speech, Confusion, Seizures, Other Allergies: Coded Allergies: NO KNOWN ALLERGIES (Unverified , 07/11/24) Medications Current Medications Medications Dose Ordered Sig/Tom Route Start Time Stop Time Status Last Admin Dose Admin Acetaminophen/ Hydrocodone Bitart 1 tab Q4HP PRN PO 04/17/25 15:15 Ondansetron HCl 4 mg Q4HP PRN IV 04/17/25 15:15 Docusate Sodium 100 mg BIDPRN PRN PO 04/17/25 15:15 Diagnostic Test (Pha) 1 strip ACHS 04/17/25 17:00 Insulin Human Regular HS SC 04/17/25 22:00 Insulin Human Regular AC SC 04/17/25 17:00 Dextrose 50 ml UD PRN IV 04/17/25 15:15 Exam Vital Signs Vital Signs Date Time Temp Pulse Resp B/P (MAP) Pulse Ox O2 Delivery O2 Flow Rate FiO2 04/17/25 15:00 98.7 79 17 115/78 (90) 98 98.7 04/17/25 15:00 Room Air 04/17/25 10:15 0 21 General Appearance: Alert, Oriented X3, Cooperative, No acute distress HEENT: Atraumatic, PERRLA, EOMI, Mucous membr. moist/pink Respiratory: Clear to auscultation, Normal air movement Cardiovascular: Regular rate, Normal S1, Normal S2, No murmurs Abdominal: Normal bowel sounds, Soft, No tenderness, No hepatospenomegaly, No masses Extremities: No clubbing, No cyanosis, No edema, Normal pulses, No tenderness/swelling Skin: No rashes, No breakdown, No significant lesion Neuro: Normal gait, Normal speech, Strength at 5/5 X4 ext, Normal tone, Sensation intact, Cranial nerves 3-12 NL, Reflexes 2+ Psych/Mental Status: Mental status NL, Mood NL Labs/Xrays Reviewed with patient Labs Test 04/17/25 10:59 04/17/25 10:58 Range/Units White Blood Count 13.5 H 4.4-10.8 10^3/uL Red Blood Count 4.86 4.5-5.90 10^6/uL Hemoglobin 15.4 13.5-17.5 g/dL Hematocrit 44.9 41.0-53.0 % Mean Corpuscular Volume 92.3 80.0-100.0 fL Mean Corpuscular Hemoglobin 31.8 28.0-32.0 pg Mean Corpuscular Hemoglobin Concent 34.4 32.0-36.0 g/dL Red Cell Distribution Width 12.5 11.8-14.3 % Platelet Count 380 140-450 10^3/uL Mean Platelet Volume 8.4 6.9-10.8 fL Neutrophils (%) (Auto) 81.7 H 37.0-80.0 % Lymphocytes (%) (Auto) 11.8 10.0-50.0 % Monocytes (%) (Auto) 6.3 0.0-12.0 % Eosinophils (%) (Auto) 0.1 0.0-7.0 % Basophils (%) (Auto) 0.1 0.0-2.0 % Neutrophils # (Auto) 11.0 H 1.6-8.6 10 ^3/uL Lymphocytes # (Auto) 1.6 0.4-5.4 10 ^3/uL Monocytes # (Auto) 0.8 0-1.3 10 ^3/uL Eosinophils # (Auto) 0 0-0.8 10 ^3/uL Basophils # (Auto) 0 0-0.2 10 ^3/uL Nucleated Red Blood Cells 0.0 % Sodium Level 132 L 136-145 mmol/L Potassium Level 5.1 3.5-5.1 mmol/L Chloride Level 97 L 98-107 mmol/L Carbon Dioxide Level 22 20-31 mmol/L Anion Gap 13 5-15 Blood Urea Nitrogen 35 H 9-23 mg/dL Creatinine 3.50 H 0.700-1.30 mg/dL Glomerular Filtration Rate Calc 19 >90 mL/min BUN/Creatinine Ratio 10.0 10.0-20.0 Serum Glucose 341 H 74-106 mg/dL Calcium Level 9.7 8.7-10.4 mg/dL Magnesium Level 2.2 1.6-2.6 mg/dL Total Bilirubin 0.5 0.2-1.0 mg/dL Aspartate Amino Transferase (AST) 11 L 13-40 U/L Alanine Aminotransferase (ALT) 16 7-40 U/L Alkaline Phosphatase 128 H 46-116 U/L Total Protein 8.6 H 5.7-8.2 g/dL Albumin 4.7 3.2-4.8 g/dL Urine Opiates Screen Neg NEGATIVE Urine Fentanyl Screen Neg NEGATIVE Urine Barbiturates Screen Neg NEGATIVE Urine Phencyclidine Screen Neg NEGATIVE Urine Amphetamines Screen Neg NEGATIVE Urine Benzodiazepines Screen Neg NEGATIVE Urine Cocaine Screen Neg NEGATIVE Urine Cannabinoids Screen Neg NEGATIVE Urine Color Colorless Yellow Urine Clarity Turbid H Clear Urine pH 5.5 5.0-9.0 Urine Specific [place] 1.010 1.001-1.035 Urine Protein 1+ H Negative Urine Ketones Negative Negative Urine Blood Trace H Negative /uL Urine Nitrite Negative Negative Urine Bilirubin Negative Negative Urine Urobilinogen Normal Negative mg/dL Urine Leukocyte Esterase 3+ Negative /uL Urine RBC 1 0 - 3 /hpf Urine WBC Clumps Present None Seen /hpf Urine Microscopic WBC 220 H 0-3 /HPF Urine Squamous Epithelial Cells None seen <5 /hpf Urine Bacteria Few H None Seen /hpf Urine Mucus Few None Seen Urine Yeast (Budding) Occasional None Seen /hpf Urine Glucose 3+ H Normal mg/dL SEPSIS Sepsis Screen Date sepsis recognized/suspect: Apr 17, 2025 Time Sepsis recognized/suspect: 1021 Recent Procedure: No On Antibiotic Therapy: No Respiratory Rate >20: No Heart Rate >90: Yes Temp<36 C (96.8 F) or >38.3 C: No SBP <90 or MAP <65 mmHG: No New Acute Mental Status Change: No Is the patient on CPAP, BIPAP,: No Physician Orders Urine Bacterial Culture (04/17/25 10:26) Allergies (04/17/25 15:13) Code Status (04/17/25 15:13) Hydrocodone-Acet 5/325mg Tab ([place] 5/32 (04/17/25 15:15) Ondansetron Hcl (Zofran) (04/17/25 15:15) Docusate Sodium Capsule (Colace Capsule) (04/17/25 15:15) Complete Blood Count (04/18/25 04:00) Comprehensive Metabolic Panel (04/18/25 04:00) Condition: Fair (04/17/25 15:13) BRP (04/17/25 15:13) Consistent Carb(Ccho)Diabetes (04/17/25 Dinner) Admit (04/17/25 15:13) Glucose Blood (Accu-Chek Comfort Curve T (04/17/25 17:00) Insulin R (Human) (Insulin R) (04/17/25 22:00) Insulin R (Human) (Insulin R) (04/17/25 17:00) Dextrose 50% Syringe (04/17/25 15:15) Hemoglobin A1c (04/17/25 15:13) NS (04/17/25 16:15) Pantoprazole Tablet (Protonix Tablet) (04/17/25 22:00) Tamsulosin Hydrochloride (Flomax) (04/18/25 10:00) Atorvastatin (Lipitor) (04/17/25 22:00) Hydrochlorothiazide Tablet (Hydrochlorot (04/18/25 10:00) Lisinopril Tablet (Zestril Tablet) (04/18/25 10:00) Vital Signs Date Time Temp Pulse Resp B/P (MAP) Pulse Ox O2 Delivery O2 Flow Rate FiO2 04/17/25 15:00 98.7 79 17 115/78 (90) 98 98.7 04/17/25 15:00 79 16 98 Room Air 04/17/25 14:58 98.7 04/17/25 11:58 99 18 125/70 (88) 99 04/17/25 10:15 Room Air* 0 21 04/17/25 09:53 98.4 107 18 108/79 98 98.4 Laboratory Tests Test 04/17/25 10:59 White Blood Count 13.5 10^3/uL (4.4-10.8) H Medications Medications Dose Ordered Sig/Tom Route Start Time Stop Time Status Last Admin Dose Admin Acetaminophen 650 mg ONCE ONCE PO 04/17/25 14:15 04/17/25 14:16 DC 04/17/25 14:58 650 MG Ceftriaxone Sodium 50 ml @ 100 mls/hr ONCE ONCE IV 04/17/25 14:15 04/17/25 14:44 DC 04/17/25 15:00 100 MLS/HR Sodium Chloride 500 ml @ 500 mls/hr Q1H ONCE IV 04/17/25 11:00 04/17/25 11:59 DC 04/17/25 11:05 500 MLS/HR Assessment/Plan Assessment/Plan UTI/urinary retention/BPH Admit to medical/surgical Whitman was placed Rocephin and encouraged p.o. intake fluids UA shows WBCs to 20, leukocytes 3+ and few bacteria, CBC 13.5 Await urine culture Patient urine has sediment and mucous in Whitman bag Diabetes mellitus type 2, poorly controlled Insulin sliding scale a.c. HS Accu-Cheks Hemoglobin A1c 10.3 Diabetic education Patient will need short-acting insulin on discharge Chronic kidney disease Monitor renal labs Chronic Hypertension Continue home medications PPX/diet Protonix- patient home med VTE prophylaxis not indicated Consistent carb diet Plan discussed with: Patient My Orders Orders - LIDA GUY Procedure Category Date Status Time Allergies NOEMÍ 04/17/25 In Process 15:13 Code Status CODE 04/17/25 Transmitted 15:13 Hydrocodone-Acet PHA 04/17/25 In Process 5/325mg Tab ([place] 15:15 Ondansetron Hcl PHA 04/17/25 In Process (Zofran) 15:15 Docusate Sodium PHA 04/17/25 In Process Capsule (Colace 15:15 Complete Blood Count LAB 04/18/25 Verified 04:00 Comprehensive LAB 04/18/25 Verified Metabolic Panel 04:00 Condition: Fair NOEMÍ 04/17/25 In Process 15:13 BRP NOEMÍ 04/17/25 In Process 15:13 Consistent DIET 04/17/25 Transmitted Carb(Ccho)Diabetes Dinner Admit ADMIT 04/17/25 Transmitted 15:13 Glucose Blood PHA 04/17/25 In Process (Accu-Chek Comfort 17:00 Insulin R (Human) PHA 04/17/25 In Process (Insulin R) 22:00 Insulin R (Human) PHA 04/17/25 In Process (Insulin R) 17:00 Dextrose 50% Syringe PHA 04/17/25 In Process 15:15 Hemoglobin A1c LAB 04/17/25 In Process 15:13 NS PHA 04/17/25 Verified 16:15 Pantoprazole Tablet PHA 04/17/25 Verified (Protonix Tablet) 22:00 Tamsulosin PHA 04/18/25 Verified Hydrochloride (Flomax) 10:00 Atorvastatin (Lipitor) PHA 04/17/25 Verified 22:00 Hydrochlorothiazide PHA 04/18/25 Verified Tablet (Hydrochlorot 10:00 Lisinopril Tablet PHA 04/18/25 Verified (Zestril Tablet) 10:00 Date of Service: Apr 17, 2025 Billing Provider: LIDA GYU Common Visit Codes: [id number] INP/OBS CARE (HIGH) LIDA GUY Apr 17, 2025 16:37
[2025-04-17] MEDS: ACCU-CHEK COMFORT CURVE STRIP VI SCH (18:33)
[2025-04-17] MEDS: InsuLIN REG 1unit/0.01ml Soln (100units/ml) SC SCH (18:36)
[2025-04-18] VITALS (7 sets, daily range): BP systolic 114–132; BP diastolic 74–88; PULSE 61–101; RESP 14–20; TEMP 98.2–98.6; O2SAT 95–99
[2025-04-18] MEDS: InsuLIN REG 1unit/0.01ml Soln (100units/ml) SC SCH (00:36)
[2025-04-18] MEDS: ATORVASTATIN 20 MG TAB PO SCH (00:37)
[2025-04-18] MEDS: PANTOPRAZOLE 40 MG TAB PO SCH (00:37)
[2025-04-18 04:05] LABS: Hematocrit 45.3 % (41.0-53.0); Hemoglobin 15.0 g/dL (13.5-17.5); Mean Corpuscular Hemoglobin 31.9 pg (28.0-32.0); Mean Corpuscular Volume 96.0 fL (80.0-100.0); Nucleated Red Blood Cells % 0.0 %
[2025-04-18 04:18] LABS: Alanine Aminotransferase 16 U/L (7-40); Albumin 4.3 g/dL (3.2-4.8); Alkaline Phosphatase 115 U/L (46-116); Anion Gap 13 (5-15); BUN/Creatinine Ratio 7.5 (10.0-20.0); Calcium 8.8 mg/dL (8.7-10.4); Chloride 103 mmol/L (98-107); Potassium 4.6 mmol/L (3.5-5.1); Total Protein 7.6 g/dL (5.7-8.2)
[2025-04-18 04:19] LABS: Bilirubin, Total 0.4 mg/dL (0.2-1.0)
[2025-04-18 04:31] LABS: Blood Urea Nitrogen 24 mg/dL (9-23); Carbon Dioxide 15 mmol/L (20-31); Glucose 146 mg/dL (74-106); Sodium 131 mmol/L (136-145)
[2025-04-18] MEDS: TAMSULOSIN HYDROCHLORIDE 0.4 MG CAP PO SCH (09:59)
[2025-04-18] MEDS: hydroCHLOROthiazide 25 MG TAB PO SCH (10:00)
[2025-04-18] MEDS: LISINOPRIL 5 MG TAB PO SCH (10:00)
--- NOTE | 2025-04-18 17:03 | DVHPN2 ---
Subjective Patient reports having intermittent fevers for two weeks. Reviewed: Care Plan, H&P, Labs, Medications Changes from previous H/P or p: No Changes Eyes: No Pain, No Vision change, No Conjunctivae inflammation, No Eyelid inflammation, No Other, No Redness Cardiovascular: No Chest Pain, No Palpitations, No Orthopnea, No Paroxysmal Noc. Dyspnea, No Edema, No Lt Headedness, No Other Respiratory: No Cough, No Dry, No Shortness of breath, No SOB with excertion, No Wheezing, No Hemoptysis, No Pleuritic Pain, No Sputum, No Other Gastrointestinal: No Nausea, No Vomiting; Abdominal Pain; No Diarrhea, No Constipation, No Melena, No Hematochezia, No Other Genitourinary: Dysuria; No Frequency, No Incontinence, No Hematuria, No Retention, No Other Musculoskeletal: No other, No neck pain, No shoulder pain, No arm pain, No back pain, No hand pain, No leg pain, No foot pain Skin: No Rash, No Lesions, No Jaundice, No Bruising, No Other Objective Vitals Vital Signs Date Time Temp Pulse Resp B/P (MAP) Pulse Ox O2 Delivery O2 Flow Rate FiO2 04/18/25 14:36 98.2 101 18 132/84 (100) 96 98.2 04/18/25 14:35 Room Air* 0 21 Intake/Output Intake and Output 04/18/25 07:00 Intake Total 500 ml Balance 500 ml Intake IV Total 500 ml General Appearance: Alert, Oriented X3, Cooperative HEENT: Atraumatic, PERRLA Lungs: Clear to auscultation, Normal air movement Cardiovascular: Normal S1, Normal S2 Abdomen: Normal bowel sounds, Soft, No tenderness Musculoskeletal: Normal sensory function, Normal motor function Skin: Dry, Intact Psych/Mental Status: Mental status NL, Mood NL Medications Current Medications Medications Dose Ordered Sig/Tom Route Start Time Stop Time Status Last Admin Dose Admin Acetaminophen/ Hydrocodone Bitart 1 tab Q4HP PRN PO 04/17/25 15:15 Ondansetron HCl 4 mg Q4HP PRN IV 04/17/25 15:15 Docusate Sodium 100 mg BIDPRN PRN PO 04/17/25 15:15 Diagnostic Test (Pha) 1 strip ACHS 04/17/25 17:00 04/18/25 11:48 1 STRIP Insulin Human Regular HS SC 04/17/25 22:00 Insulin Human Regular AC SC 04/17/25 17:00 04/18/25 11:54 9 UNITS Dextrose 50 ml UD PRN IV 04/17/25 15:15 Pantoprazole Sodium 40 mg BIDAC PO 04/17/25 22:00 04/18/25 08:14 40 MG Tamsulosin HCl 0.4 mg DAILY PO 04/18/25 10:00 04/18/25 09:59 0.4 MG Atorvastatin Calcium 40 mg HS PO 04/17/25 22:00 04/18/25 00:37 40 MG Hydrochlorothiazide 12.5 mg DAILY PO 04/18/25 10:00 04/18/25 10:00 12.5 MG Lisinopril 10 mg DAILY PO 04/18/25 10:00 04/18/25 10:00 10 MG Ceftriaxone Sodium 50 ml @ 100 mls/hr DAILY@09 IV 04/18/25 09:00 04/18/25 09:10 100 MLS/HR Laboratory Results Laboratory Tests 04/18/25 03:45 Chemistry Test 04/18/25 03:45 Albumin 4.3 g/dL (3.2-4.8) Calcium Level 8.8 mg/dL (8.7-10.4) Total Protein 7.6 g/dL (5.7-8.2) LFT Test 04/18/25 03:45 Alanine Aminotransferase (ALT) 16 U/L (7-40) Alkaline Phosphatase 115 U/L (46-116) Aspartate Amino Transferase (AST) 19 U/L (13-40) Total Bilirubin 0.4 mg/dL (0.2-1.0) Urinalysis Test 04/17/25 10:58 Urine Color Colorless (Yellow) Urine Clarity Turbid (Clear) H Urine pH 5.5 (5.0-9.0) Urine Specific [place] 1.010 (1.001-1.035) Urine Protein 1+ (Negative) H Urine Ketones Negative (Negative) Urine Blood Trace /uL (Negative) H Urine Nitrite Negative (Negative) Urine Bilirubin Negative (Negative) Urine Urobilinogen Normal mg/dL (Negative) Urine Leukocyte Esterase 3+ /uL (Negative) Urine RBC 1 /hpf (0 - 3) Urine WBC Clumps Present /hpf (None Seen) Urine Microscopic WBC 220 /HPF (0-3) H Urine Squamous Epithelial Cells None seen /hpf (<5) Urine Bacteria Few /hpf (None Seen) H Urine Mucus Few (None Seen) Urine Yeast (Budding) Occasional /hpf (None Urine Glucose 3+ mg/dL (Normal) H Microbiology Microbiology Date/Time Source Procedure Growth Status 04/17/25 10:58 Voided Urine Urine Culture - Preliminary Resulted Labs and/or images reviewed: Labs reviewed by me, Image(s) reviewed by me Assessment/Plan Assessment/Plan Impression: -sepsis -complicated cystitis -acute kidney injury, vasomotor nephropathy -CKD stage four -diabetes mellitus -primary hypertension -dyslipidemia Plan: -urine culture: Preliminary with greater than [id number] gram-negative rods -change IV antibiotic: Merrem panel -continue home antihypertensives -regular insulin sliding scale -kidney ultrasound -reassess Whitman catheter in a.m., possible discontinuation -repeat labs in a.m. Total time spent with patient discussing and formulating plan of care: 35 minutes. This medical document was created using an electronic medical record system with [employer] dictation system. Although this document has been carefully reviewed, there may still be some phonetic and typographical errors. These areas are purely typographical due to imperfections of the software programs, and do not reflect any compromise in the patient's medical care. Plan discussed with: Patient, Other (RN) My Orders Orders - SILVINA HARDIN NP Procedure Category Date Status Time Mrsa Screen JATIN 04/18/25 Logged 15:53 Basic Metabolic Panel LAB 04/19/25 Verified 04:00 Complete Blood Count LAB 04/19/25 Verified 04:00 Kidney US 04/18/25 Verified 16:53 NS PHA 04/18/25 Verified 17:00 Date of Service: Apr 18, 2025 Billing Provider: SILVINA HARDIN NP Common Visit Codes: [id number] INP/OBS CARE(HIGH) SILVINA HARDIN NP Apr 18, 2025 17:03
--- NOTE | 2025-04-18 17:38 | DVH ---
CLINICAL HISTORY: obstructive uropathy TECHNIQUE: Complete ultrasound exam of the kidneys and bladder was performed. COMPARISON: US KIDNEY on DOS: 07/12/24 FINDINGS: The right kidney has normal echogenicity and measures 8.9 cm. There is no focal parenchymal abnormali ty or evidence for stone. There is no hydronephrosis. The left kidney has normal echogenicity and measures 8.7 cm. There is no focal parenchymal abnormali ty or evidence for stone. There is no hydronephrosis. The bladder decompressed by abernathy. The bladder wall is thickened, measuring 16 mm. IMPRESSION: No significant sonographic abnormality of the kidneys. Diffuse bladder wall thickening measuring 16 mm. Further work up recommended
[2025-04-18] MEDS: SODIUM CHLORIDE 0.9% 1,000 ML IV ONE (17:47)
[2025-04-18] MEDS: MEROPENEM 500MG IVPB 50 ML IV SCH (17:47)
[2025-04-19] VITALS (7 sets, daily range): BP systolic 100–128; BP diastolic 72–87; PULSE 81–100; RESP 18–20; TEMP 97.7–98.8; O2SAT 95–99
[2025-04-19 06:27] LABS: Hematocrit 36.7 % (41.0-53.0); Hemoglobin 12.8 g/dL (13.5-17.5); Mean Corpuscular Hemoglobin 31.8 pg (28.0-32.0); Mean Corpuscular Volume 91.6 fL (80.0-100.0); Nucleated Red Blood Cells % 0.0 %
[2025-04-19 06:29] LABS: Anion Gap 12 (5-15); Carbon Dioxide 20 mmol/L (20-31); Chloride 105 mmol/L (98-107); Potassium 4.1 mmol/L (3.5-5.1); Sodium 137 mmol/L (136-145)
[2025-04-19 06:35] LABS: BUN/Creatinine Ratio 14.9 (10.0-20.0)
[2025-04-19 06:53] LABS: Blood Urea Nitrogen 43 mg/dL (9-23); Calcium 8.5 mg/dL (8.7-10.4); Glucose 178 mg/dL (74-106)
--- NOTE | 2025-04-19 14:23 | DVHPN2 ---
Subjective Patient states that he feels better. Reviewed: Care Plan, H&P, Labs, Medications Changes from previous H/P or p: No Changes Eyes: No Pain, No Vision change, No Conjunctivae inflammation, No Eyelid inflammation, No Other, No Redness Cardiovascular: No Chest Pain, No Palpitations, No Orthopnea, No Paroxysmal Noc. Dyspnea, No Edema, No Lt Headedness, No Other Respiratory: No Cough, No Dry, No Shortness of breath, No SOB with excertion, No Wheezing, No Hemoptysis, No Pleuritic Pain, No Sputum, No Other Gastrointestinal: No Nausea, No Vomiting; Abdominal Pain; No Diarrhea, No Constipation, No Melena, No Hematochezia, No Other Genitourinary: Dysuria; No Frequency, No Incontinence, No Hematuria, No Retention, No Other Musculoskeletal: No other, No neck pain, No shoulder pain, No arm pain, No back pain, No hand pain, No leg pain, No foot pain Skin: No Rash, No Lesions, No Jaundice, No Bruising, No Other Objective Vitals Vital Signs Date Time Temp Pulse Resp B/P (MAP) Pulse Ox O2 Delivery O2 Flow Rate FiO2 04/19/25 13:00 98.4 86 20 124/87 (99) 99 98.4 04/19/25 07:50 Room Air* 0 21 Intake/Output Intake and Output 04/19/25 07:00 Intake Total 900 ml Output Total 850 ml Balance 50 ml Intake Oral 800 ml IV Total 100 ml Output Urine Total 850 ml General Appearance: Alert, Oriented X3, Cooperative HEENT: Atraumatic, PERRLA Lungs: Clear to auscultation, Normal air movement Cardiovascular: Normal S1, Normal S2 Abdomen: Normal bowel sounds, Soft, No tenderness Musculoskeletal: Normal sensory function, Normal motor function Skin: Dry, Intact Psych/Mental Status: Mental status NL, Mood NL Medications Current Medications Medications Dose Ordered Sig/Tom Route Start Time Stop Time Status Last Admin Dose Admin Acetaminophen/ Hydrocodone Bitart 1 tab Q4HP PRN PO 04/17/25 15:15 Ondansetron HCl 4 mg Q4HP PRN IV 04/17/25 15:15 Docusate Sodium 100 mg BIDPRN PRN PO 04/17/25 15:15 Diagnostic Test (Pha) 1 strip ACHS 04/17/25 17:00 04/19/25 11:54 1 STRIP Insulin Human Regular HS SC 04/17/25 22:00 04/18/25 22:14 6 UNITS Insulin Human Regular AC SC 04/17/25 17:00 04/19/25 11:55 6 UNITS Dextrose 50 ml UD PRN IV 04/17/25 15:15 Pantoprazole Sodium 40 mg BIDAC PO 04/17/25 22:00 04/19/25 06:23 40 MG Tamsulosin HCl 0.4 mg DAILY PO 04/18/25 10:00 04/19/25 09:09 0.4 MG Atorvastatin Calcium 40 mg HS PO 04/17/25 22:00 04/18/25 22:15 40 MG Hydrochlorothiazide 12.5 mg DAILY PO 04/18/25 10:00 04/19/25 09:09 12.5 MG Meropenem 50 ml @ 17 mls/hr Q12H IV 04/18/25 18:00 04/19/25 05:43 17 MLS/HR Laboratory Results Laboratory Tests 04/19/25 05:34 Chemistry Test 04/19/25 05:34 Calcium Level 8.5 mg/dL (8.7-10.4) L Urinalysis Test 04/17/25 10:58 Urine Color Colorless (Yellow) Urine Clarity Turbid (Clear) H Urine pH 5.5 (5.0-9.0) Urine Specific [place] 1.010 (1.001-1.035) Urine Protein 1+ (Negative) H Urine Ketones Negative (Negative) Urine Blood Trace /uL (Negative) H Urine Nitrite Negative (Negative) Urine Bilirubin Negative (Negative) Urine Urobilinogen Normal mg/dL (Negative) Urine Leukocyte Esterase 3+ /uL (Negative) Urine RBC 1 /hpf (0 - 3) Urine WBC Clumps Present /hpf (None Seen) Urine Microscopic WBC 220 /HPF (0-3) H Urine Squamous Epithelial Cells None seen /hpf (<5) Urine Bacteria Few /hpf (None Seen) H Urine Mucus Few (None Seen) Urine Yeast (Budding) Occasional /hpf (None Urine Glucose 3+ mg/dL (Normal) H Microbiology Microbiology Date/Time Source Procedure Growth Status 04/18/25 15:40 Nose MRSA Screen - Final Complete 04/17/25 10:58 Voided Urine Urine Culture - Final Klebsiella pneumoniae Complete Labs and/or images reviewed: Labs reviewed by me, Image(s) reviewed by me Assessment/Plan Assessment/Plan Impression: -sepsis -complicated cystitis -acute kidney injury, vasomotor nephropathy -CKD stage four -diabetes mellitus -primary hypertension -dyslipidemia Plan: -urine culture: Positive for Klebsiella pneumoniae. -change IV antibiotic: Deescalate to Levaquin 250 mg p.o. daily -continue home antihypertensives -regular insulin sliding scale -kidney ultrasound -DC Whitman catheter -repeat labs in a.m. -reassess for discharge in a.m. Total time spent with patient discussing and formulating plan of care: 35 minutes. This medical document was created using an electronic medical record system with [employer] dictation system. Although this document has been carefully reviewed, there may still be some phonetic and typographical errors. These areas are purely typographical due to imperfections of the software programs, and do not reflect any compromise in the patient's medical care. Plan discussed with: Patient, Other (RN) My Orders Orders - SILVINA HARDIN NP Procedure Category Date Status Time Kidney US 04/18/25 Resulted 16:53 Basic Metabolic Panel LAB 04/20/25 Verified 04:00 Insulin Lantus PHA 04/19/25 Logged (Glargine) (Lantus) 22:00 Complete Blood Count LAB 04/20/25 Verified 04:00 Date of Service: Apr 19, 2025 Billing Provider: SILVINA HARDIN NP Common Visit Codes: [id number] INP/OBS CARE(HIGH) SILVINA HARDIN NP Apr 19, 2025 14:23
[2025-04-19] MEDS: INSULIN LANTUS (GLARGINE) 1 /0.01ml (100units/ml) SC SCH (21:22)
[2025-04-20 01:00] VITALS: BP 127/86; PULSE 88; RESP 17; TEMP 98.7; O2SAT 98
[2025-04-20 05:00] VITALS: BP 130/87; PULSE 84; RESP 17; TEMP 98.3; O2SAT 97
[2025-04-20 05:55] LABS: Hematocrit 35.5 % (41.0-53.0); Hemoglobin 12.7 g/dL (13.5-17.5); Mean Corpuscular Hemoglobin 32.4 pg (28.0-32.0); Mean Corpuscular Volume 90.4 fL (80.0-100.0); Nucleated Red Blood Cells % 0.0 %
[2025-04-20 06:40] LABS: Calcium 8.8 mg/dL (8.7-10.4); Chloride 106 mmol/L (98-107); Potassium 4.5 mmol/L (3.5-5.1)
[2025-04-20 06:41] LABS: Anion Gap 9 (5-15)
[2025-04-20 06:46] LABS: BUN/Creatinine Ratio 15.2 (10.0-20.0); Carbon Dioxide 20 mmol/L (20-31); Sodium 135 mmol/L (136-145)
[2025-04-20 06:47] LABS: Blood Urea Nitrogen 39 mg/dL (9-23); Glucose 248 mg/dL (74-106)
[2025-04-20 07:54] VITALS: PULSE 78; RESP 18; O2SAT 98
[2025-04-20 09:00] VITALS: BP 119/84; PULSE 83; RESP 20; TEMP 97; O2SAT 96
[2025-04-20 13:00] VITALS: BP 111/87; PULSE 92; RESP 18; TEMP 98.4; O2SAT 96
[2025-04-20] MEDS ORDERED: CIPR500T4 PO (14:20)
--- NOTE | 2025-04-20 14:24 | DVHDS2 ---
Discharge Summary Date of Admission Apr 17, 2025 at 15:13 Date of Discharge: Apr 20, 2025 Admitting Diagnosis UTI Labs/Diagnostic Data: Laboratory Results Test 04/20/25 11:04 04/20/25 05:33 04/18/25 03:45 04/17/25 10:59 POC Glucose 237 mg/dl (70-106) White Blood Count 11.3 10^3/uL (4.4-10.8) Red Blood Count 3.93 10^6/uL (4.5-5.90) Hemoglobin 12.7 g/dL (13.5-17.5) Hematocrit 35.5 % (41.0-53.0) Mean Corpuscular Volume 90.4 fL (80.0-100.0) Mean Corpuscular Hemoglobin 32.4 pg (28.0-32.0) Mean Corpuscular Hemoglobin Concent 35.9 g/dL (32.0-36.0) Red Cell Distribution Width 12.3 % (11.8-14.3) Platelet Count 372 10^3/uL (140-450) Mean Platelet Volume 8.0 fL (6.9-10.8) Neutrophils (%) (Auto) 77.5 % (37.0-80.0) Lymphocytes (%) (Auto) 14.7 % (10.0-50.0) Monocytes (%) (Auto) 5.9 % (0.0-12.0) Eosinophils (%) (Auto) 1.4 % (0.0-7.0) Basophils (%) (Auto) 0.5 % (0.0-2.0) Neutrophils # (Auto) 8.7 10 ^3/uL (1.6-8.6) Lymphocytes # (Auto) 1.7 10 ^3/uL (0.4-5.4) Monocytes # (Auto) 0.7 10 ^3/uL (0-1.3) Eosinophils # (Auto) 0.2 10 ^3/uL (0-0.8) Basophils # (Auto) 0.1 10 ^3/uL (0-0.2) Nucleated Red Blood Cells 0.0 % Sodium Level 135 mmol/L (136-145) Potassium Level 4.5 mmol/L (3.5-5.1) Chloride Level 106 mmol/L (98-107) Carbon Dioxide Level 20 mmol/L (20-31) Anion Gap 9 (5-15) Blood Urea Nitrogen 39 mg/dL (9-23) Creatinine 2.57 mg/dL (0.700-1.30) Glomerular Filtration Rate Calc 28 mL/min (>90) BUN/Creatinine Ratio 15.2 (10.0-20.0) Serum Glucose 248 mg/dL (74-106) Calcium Level 8.8 mg/dL (8.7-10.4) Total Bilirubin 0.4 mg/dL (0.2-1.0) Aspartate Amino Transferase (AST) 19 U/L (13-40) Alanine Aminotransferase (ALT) 16 U/L (7-40) Alkaline Phosphatase 115 U/L (46-116) Total Protein 7.6 g/dL (5.7-8.2) Albumin 4.3 g/dL (3.2-4.8) Hemoglobin A1c 10.3 % A1C (<5.7) Magnesium Level 2.2 mg/dL (1.6-2.6) Urine Opiates Screen Neg (NEGATIVE) Urine Fentanyl Screen Neg (NEGATIVE) Urine Barbiturates Screen Neg (NEGATIVE) Urine Phencyclidine Screen Neg (NEGATIVE) Urine Amphetamines Screen Neg (NEGATIVE) Urine Benzodiazepines Screen Neg (NEGATIVE) Urine Cocaine Screen Neg (NEGATIVE) Urine Cannabinoids Screen Neg (NEGATIVE) Test 04/17/25 10:58 Urine Color Colorless (Yellow) Urine Clarity Turbid (Clear) Urine pH 5.5 (5.0-9.0) Urine Specific [place] 1.010 (1.001-1.035) Urine Protein 1+ (Negative) Urine Ketones Negative (Negative) Urine Blood Trace /uL (Negative) Urine Nitrite Negative (Negative) Urine Bilirubin Negative (Negative) Urine Urobilinogen Normal mg/dL (Negative) Urine Leukocyte Esterase 3+ /uL (Negative) Urine RBC 1 /hpf (0 - 3) Urine WBC Clumps Present /hpf (None Seen) Urine Microscopic WBC 220 /HPF (0-3) Urine Squamous Epithelial Cells None seen /hpf (<5) Urine Bacteria Few /hpf (None Seen) Urine Mucus Few (None Seen) Urine Yeast (Budding) Occasional /hpf (None Urine Glucose 3+ mg/dL (Normal) Other Laboratory Tests 04/20/25 05:33 Brief Hx & Hospital Course: History of Present Illness 60-year-old male with past medical history of hypertension, diabetes, dyslipidemia, chronic kidney disease and BPH came to hospital due to abdominal pain x7 days. Patient describes pain as lower abdomen, intermittent, currently 5/10. Patient states it has also been difficult for him to pass urine. Patient was admitted to the hospital due to UTI and urinary retention secondary to BPH approximately 1 year ago, was seen by Urology but patient has not been compliant with medication. Patient also notes that he has not been compliant with his diabetic medication as well, he reports taking his Lantus but not checking blood sugars throughout the day and not taking his lispro. Patient will be admitted to medical/surgical for management/treatment as well as antibiotics. Course of hospitalization: Patient had broaden antibiotic therapy given Gram-negative rods greater than [id number] in a patient with recurrent UTIs. Urine culture came back positive for K lebsiella pneumoniae, with deescalation of antibiotics to ciprofloxacin. Patient's blood sugars have improved. Patient was given IV hydration with improvement of the patient's renal function back to baseline. Long discussion was made with the patient regarding the need to be adherent to his diabetic medications. Given his recurrent UTIs, recommendations were made to stop taking Farxiga. Patient will be discharged home and will be continued on ciprofloxacin 500 mg p.o. daily for additional seven days. He will follow up with his PCP, Dr. Emerson as well as his grease worker Dr. Randall, in the next 1-2 weeks. Patient was agreeable with discharge plan. All questions answered. Physical examination General: Alert and Oriented x3. No acute distress. Well-nourished. Eyes: EOMI. Anicteric. HENT: Moist mucous membranes. Lungs: Clear to auscultation bilaterally. No accessory muscle use. Cardiovascular: Regular rate and rhythm. No murmur. No JVD. Abdomen: Soft, non-tender and non-distended. No palpable masses. Extremities: No edema. Non-tender. Skin: No rashes or lesions. Warm. Neurologic: No focal neurological deficits. CN II-XII grossly intact, but not individually tested. Psychiatric: Cooperative. Appropriate mood and affect. Total time spent with patient discussing and formulating plan of care: 35 minutes. This medical document was created using an electronic medical record system with [employer] dictation system. Although this document has been carefully reviewed, there may still be some phonetic and typographical errors. These areas are purely typographical due to imperfections of the software programs, and do not reflect any compromise in the patient's medical care. Condition at Discharge: Guarded Final Diagnosis/Problems List Sepsis secondary to complicated cystitis -complicated cystitis -acute kidney injury, vasomotor nephropathy -CKD stage four -diabetes mellitus -primary hypertension -dyslipidemia Discharge Disposition: Home Discharge Instruct/Medications Diet: Consistent carbohydrate Activity: No Restrictions, As Tolerated Follow Up/Referral: Follow up with PCP Dr. EMERSON in 1-2 weeks follow up with grease worker Dr. Randall in 1-2 weeks Medications: Stop taking Farxiga given recurrent UTIs Ciprofloxacin 500 mg p.o. daily x7 days Continue all medications Scheduled Atorvastatin Calcium (Atorvastatin Calcium), 1 TAB PO QPM, (Reported) Ciprofloxacin Hcl (Cipro), 1 TAB PO BID Ciprofloxacin Hcl (Ciprofloxacin Hcl), 1 TAB PO DAILY Glipizide (Glipizide), 1 TAB PO DAILY, (Reported) Hydrochlorothiazide (Hydrochlorothiazide), 1 MG PO DAILY, (Reported) Insulin Glargine (Lantus Solostar), 100 UNIT SC DAILY, (Reported) Lisinopril (Lisinopril), 10 MG PO DAILY, (Reported) Mupirocin (Pseudomonas Fluores (Mupirocin), 1 APPLIC EACHNOSTRI BID Pantoprazole Sodium Sesquihydr (Pantoprazole Sodium), 1 TAB PO BID, (Reported) Tamsulosin Hcl (Tamsulosin Hcl), 0.4 MG PO DAILY, (Reported) 36 Discharge Statement: "Patient was advised to return to the ER or call 911 if any headaches, dizziness, shortness of breath, chest pain, abdominal pain, bleeding, fevers, or worsening of medical condition. Patient was counseled about treatment plan, medications, possible side effects, patientverbalized understanding. All questions were answered to the best of my ability. This discharge took greater then 30 minutes in planning, reviewing documentation, counseling the patient, and discussing with other team members." ASSESSMENT ASSESSMENT Assessment Sepsis secondary to complicated cystitis Date of Service: Apr 20, 2025 Billing Provider: SILVINA HARDIN NP Common Visit Codes: [id number] DISCH DAY >30min SILVINA HARDIN NP Apr 20, 2025 14:24
[2025-04-20 14:49] VITALS: BP 119/84
[2025-04-20] MEDS: CIPROFLOXACIN HCL 500 MG TAB PO ONE (15:13)
== END 2025-04-20 16:00 | disposition home or self-care (01) | DRG 720 ==
LOC: ER 09:50 → OVERFLOW 15:13 → WEST WING 04-18 14:57
PROVIDERS: ADMIT Nurse Practitioner Acute Care; ATTEND Nurse Practitioner Acute Care
DX: A41.59 Other Gram-negative sepsis (principal); N17.0 Acute kidney failure with tubular necrosis; N18.4 Chronic kidney disease, stage 4 (severe); N30.90 Cystitis, unspecified without hematuria; N40.1 Benign prostatic hyperplasia with lower urinary tract symptoms; R33.8 Other retention of urine; E78.5 Hyperlipidemia, unspecified; I12.9 Hypertensive chronic kidney disease with stage 1 through stage 4 chronic kidney disease, or unspecified chronic kidney disease; E11.22 Type 2 diabetes mellitus with diabetic chronic kidney disease; E11.65 Type 2 diabetes mellitus with hyperglycemia; F17.210 Nicotine dependence, cigarettes, uncomplicated; N13.8 Other obstructive and reflux uropathy; Z91.148 Patient's other noncompliance with medication regimen for other reason; Z79.899 Other long term (current) drug therapy; B96.1 Klebsiella pneumoniae [K. pneumoniae] as the cause of diseases classified elsewhere
CPT/HCPCS: 36415; 76775; 80048; 80053; 80307; 81001; 82962; 83036; 83735; 85025; 87081; 87086; 87088; 87186; 96365; G0378; J1815; J2185